=== PATIENT | male | born 1960 | race Caucasian/White ===

== ENCOUNTER 2017-04-30 13:23 | Observation (INO) | payer OTHER, SELFPAY ==
[2017-04-30] MEDS ORDERED: HYDROcodone/Acetaminophen 5/325 mg Tablet ONE (13:55)
[2017-04-30] MEDS ORDERED: Adacel (T-DAP) 0.5 ML VIAL ONE (14:26)
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
[2017-04-30] MEDS ORDERED: ePHEDrine/0.9% NaCl/PF SYRINGE 50 mg/10 ml ONE (16:53)
[2017-04-30] MEDS ORDERED: Lidocaine 1% PF 5 ML VIAL ONE (16:53)
[2017-04-30] MEDS ORDERED: Succinylcholine Chloride 20 MG/ML 10 ml SYRINGE FS ONE (16:53)
[2017-04-30] MEDS ORDERED: PHENYLEPHRINE-NS 100 MCG/ML 10 ML SYRINGE ONE (16:53)
[2017-04-30] MEDS ORDERED: Ondansetron HCl/PF 4 MG/2 ML Vial ONE (16:53)
[2017-04-30] MEDS ORDERED: Dexamethasone 20 MG/5 ML VIAL ONE (16:53)
[2017-04-30] MEDS ORDERED: PROPOFOL 200 MG/20 ML VIAL ONE (16:53)
[2017-04-30] MEDS ORDERED: Lidocaine 1% w/Epinephrine 1:200K 30 ML VIAL ONE (17:10)
[2017-04-30] MEDS ORDERED: Hydrocortisone 1% Cream 30 GM TUBE ONE (17:10)
[2017-04-30] MEDS ORDERED: Chlorhexidine Gluconate 15 ML UDCUP SSP ONE ×2 (17:10→17:28)
[2017-04-30] MEDS ORDERED: Midazolam HCl 2 mg/2 ml Vial ONE (17:44)
[2017-04-30] MEDS ORDERED: Fentanyl 100 MCG/2 ML VIAL ONE ×2 (17:44→21:06)
[2017-04-30] MEDS ORDERED: Clindamycin/D5W 900 mg/50 ml Premix Bag ONE (18:49)
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
[2017-04-30] MEDS ORDERED: Metoprolol Tartrate 5 MG/5 ML VIAL ONE (20:48)
[2017-04-30] MEDS ORDERED: Promethazine HCl 25 MG/ML VIAL SLOW IVP PRN (20:50)
[2017-04-30] MEDS ORDERED: Ondansetron HCl/PF 4 MG/2 ML Vial IVP PRN ×3 (20:50→21:44)
[2017-04-30] MEDS ORDERED: Promethazine HCl 25 MG/ML VIAL IM PRN ×2 (20:50→21:44)
[2017-04-30] MEDS ORDERED: D5 1/2 NS w/20 mEq KCL 1,000 ML ONE (21:37)
[2017-04-30] MEDS ORDERED: Dextrose 50% Abboject 50 ML SYRINGE SLOW IVP PRN (21:44)
[2017-04-30] MEDS ORDERED: hydrALAZINE 20 MG/ML VIAL SLOW IVP PRN (21:44)
[2017-04-30] MEDS ORDERED: Dextrose 5% in Water 1,000 ML IV PRN (21:44)
[2017-04-30] MEDS ORDERED: D5 0.9% NS w/ 20 mEq KCl 1,000 ML IV SCH (21:45)
[2017-04-30] MEDS ORDERED: Hydrocodone-Acetamin 15 ML UDCUP PO PRN (21:46)
[2017-04-30] MEDS: Sodium Chloride 0.9% 1,000 ML IV SCH (22:55)
--- NOTE | 2017-04-30 23:16 | CT ---
CT FACIAL BONES: 04/30/17 at 10:58 p.m. COMPARISON: 04/30/17 at 3:56 p.m. HISTORY: Open reduction and internal fixation of mandible fracture. TECHNIQUE: Serial axial CT imaging at 2.5 mm intervals through the facial bones without contrast. coronal and sa gittal reformatted imaging obtained. FINDINGS: There is mild cerebral volume loss involving the imaged brain parenchyma. Partially visualized calvar ial postsurgical changes are present on the right. The frontal sinuses, maxillary sinuses, ethmoid air cells, sphenoid sinuses and visualized mastoid ai r cells appear well aerated. A nondisplaced obliquely oriented fracture is seen involving the anterior aspect of the mandible on t he left just lateral to the region of the symphysis. Neither temporomandibular joint is dislocated. T here is an obliquely oriented fracture involving the angle of the mandible on the right, the inferior fracture fragment displaced laterally by approximately 3 mm, improved when compared to the prior ex amination at which time this degree of displacement measured approximately 6 mm. No new fracture is i dentified. New metallic structures are seen associated with the patient's teeth. There is extensive d egenerative change involving the imaged cervical spine. Postoperative and posttraumatic gas is seen a djacent to the mandible on the right. There is diffuse soft tissue swelling adjacent to the mandible, right greater than left, including soft tissue swelling in the right parotid and masseter region. IMPRESSION: Multifocal mandibular fracture. POS: [facility]
[2017-04-30] MEDS: Dexamethasone 10 MG/ML VIAL SLOW IVP SCH (23:23)
[2017-04-30] MEDS: Ibuprofen 100 MG/5 ML UDCUP PO SCH (23:24)
[2017-04-30 23:42] VITALS: BMI 19.7
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
[2017-05-01] MEDS: Clindamycin/D5W 900 MG in Premix Bag 1 BAG IVPB SCH ×2 (02:31→08:32)
[2017-05-01] MEDS: Ibuprofen 100 MG/5 ML UDCUP PO SCH ×2 (05:47→11:46)
[2017-05-01] MEDS: Dexamethasone 10 MG/ML VIAL SLOW IVP SCH ×2 (05:47→11:46)
[2017-05-01 05:48] LABS: Anion Gap 11 mmol/L (10-20); BUN (Urea Nitrogen) 10 mg/dL (8.4-25.7); Calc. Creatinine Clearance 101 mL/min (70-130); Calcium 8.9 mg/dL (7.8-10.44); Carbon Dioxide 24 mmol/L (22-29); Chloride 102 mmol/L (98-107); Estimated GFR-MDRD Greater than 90; Glucose 181 mg/dL (70-105); Potassium 3.9 mmol/L (3.5-5.1); Sodium 133 mmol/L (136-145)
[2017-05-01] MEDS: Sodium Chloride 0.9% 1,000 ML IV SCH (05:51)
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
[2017-05-01 06:50] LABS: #Lymphocytes 0.6 thou/uL (1.20-3.40); #Monocytes 0.5 thou/uL (0.11-0.59); #Neutrophils 11.2 thou/uL (1.40-6.50); %Eosinophils 0.3 % (0.0-10.0); %Lymphocytes 4.8 % (21.0-51.0); %Monocytes 4.1 % (0.0-10.0); %Neutrophils 90.9 % (42.0-75.0); Mean Corpuscular HGB CONC 33.5 g/dL (32.0-36.0); Mean Corpuscular Hemoglobin 35.8 pg (27.0-31.0); Mean Platelet Volume 7.1 fL (7.4-10.4); Platelet Count 174 thou/uL (130-400); RBC Distribution Width 10.5 % (11.5-14.5); RBC Morphology Normal; Red Blood Cell (RBC) Count 3.92 mill/uL (4.70-6.10); White Blood Cell (WBC) Count 12.3 thou/uL (4.8-10.8)
[2017-05-01] MEDS ORDERED: traMADol HCl 50 MG TAB PO PRN (07:57)
[2017-05-01] MEDS ORDERED: Acetaminophen 500 MG TAB PO PRN (07:58)
[2017-05-01] MEDS ORDERED: Acetaminophen/Codeine Oral Solution PO SCH (08:45)
[2017-05-01] MEDS ORDERED: Chlorhexidine Gluconate 15 ML UDCUP SSP SCH (09:00)
[2017-05-01] MEDS ORDERED: Ketorolac Tromethamine 60 MG/2 ML VIAL IM SCH (09:30)
[2017-05-01] MEDS ORDERED: Hydrocodone-Acetamin 15 ML UDCUP PO SCH (10:00)
[2017-05-01] MEDS ORDERED: Acetaminophen/Codeine Oral Solution PO PRN (10:23)
[2017-05-01 12:00] VITALS: BP 127/74; TEMP 97.9
--- NOTE | 2017-05-01 15:38 | EKG ---
Test Reason : STAT Blood Pressure : / mmHG Vent. Rate : 124 BPM Atrial Rate : 124 BPM P-R Int : 134 ms QRS Dur : 092 ms QT Int : 322 ms P-R-T Axes : 077 072 057 degrees QTc Int : 462 ms Sinus tachycardia Nonspecific ST abnormality Abnormal ECG Confirmed by EMMIE CARTY ([id number]) on 05/01/2017 3:38:13 PM Referred By: Confirmed By:EMMIE CARTY
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
== END 2017-05-01 12:33 ==
LOC: SCSER 13:23 → SDC 15:17 → EEVIPCON 15:17 → SURG A 15:58
PROVIDERS: ADMIT Surgery; ATTEND Surgery
PROC: 0NST04Z Reposition Right Mandible with Internal Fixation Device, Open Approach (ICD-10-PCS; principal; 2017-04-30)
PROC: 0NSV34Z Reposition Left Mandible with Internal Fixation Device, Percutaneous Approach (ICD-10-PCS; 2017-04-30)
DX: S02.66XA Fracture of symphysis of mandible, initial encounter for closed fracture (principal); S02.651B Fracture of angle of right mandible, initial encounter for open fracture; I10 Essential (primary) hypertension; G89.11 Acute pain due to trauma; Y09 Assault by unspecified means; Y92.141 Dining room in prison as the place of occurrence of the external cause; Z98.890 Other specified postprocedural states; Z86.19 Personal history of other infectious and parasitic diseases
CPT/HCPCS: 36415; 70110; 70450; 70486; 71046; 72125; 80048; 85025; 90471; 90715; 93005; 93010; 96361; 96365; 96375; 96376; 99406; C1713; G0378; J1100; J1885; J2001; J2250; J2405; J2704; J3010; J3490

== ENCOUNTER 2017-05-17 22:43 | Emergency (ER) | payer SELFPAY | END 2017-05-17 23:25 | disposition home or self-care (01) | LOC: ERS 22:43 | DX: T85.698A Other mechanical complication of other specified internal prosthetic devices, implants and grafts, initial encounter (principal); I10 Essential (primary) hypertension; F17.210 Nicotine dependence, cigarettes, uncomplicated | CPT/HCPCS: 99283 ==

== ENCOUNTER 2017-10-13 12:05 | Observation (INO) | payer OTHER, SELFPAY ==
[2017-10-13] MEDS ORDERED: Multivit, Adult Inj 10 ML VIAL ONE (12:55)
[2017-10-13] MEDS ORDERED: Thiamine HCl 200 MG/2 ML VIAL ONE (12:55)
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
[2017-10-13 14:12] LABS: Band 6 % (5-11); Eosinophils 3 % (0-10); Hemoglobin 14.7 g/dL (14.0-18.0); Large Platelets SLIGHT; Lymphocytes 15 % (21-51); MDiff Complete? YES; Macrocytosis SLIGHT = 6-15 cells (100X) (0-5/hpf); Mean Corpuscular HGB CONC 36.3 g/dL (32.0-36.0); Mean Corpuscular Hemoglobin 36.8 pg (27.0-31.0); Mean Platelet Volume 6.8 fL (7.4-10.4); Monocytes 16 % (0-10); Neutrophil 60 % (42-75); PLT Morphology Comment Appears Decreased; Platelet Count 124 thou/uL (130-400); RBC Distribution Width 10.3 % (11.5-14.5); Red Blood Cell (RBC) Count 3.99 mill/uL (4.70-6.10); White Blood Cell (WBC) Count 5.8 thou/uL (4.8-10.8)
[2017-10-13 14:17] LABS: ALT (SGPT) 54 U/L (8-55); AST (SGOT) 38 U/L (5-34); Albumin 4.5 g/dL (3.5-5.0); Alcohol Less than 10 mg/dL (Less than 10); Alkaline Phosphatase 73 U/L (40-150); Anion Gap 15 mmol/L (10-20); BUN (Urea Nitrogen) 14 mg/dL (8.4-25.7); Bilirubin, Total 1.5 mg/dL (0.2-1.2); CK (CPK) 247 U/L (30-200); Calc. Creatinine Clearance 0 mL/min (70-130); Calcium 10.5 mg/dL (7.8-10.44); Carbon Dioxide 25 mmol/L (22-29); Chloride 103 mmol/L (98-107); Estimated GFR-MDRD Greater than 90; Globulin 3.1 g/dL (2.4-3.5); Glucose 86 mg/dL (70-105); Magnesium 2.1 mg/dL (1.6-2.6); Potassium 3.8 mmol/L (3.5-5.1); Protein, Total 7.6 g/dL (6.0-8.3); Sodium 139 mmol/L (136-145)
[2017-10-13] MEDS ORDERED: Adacel (T-DAP) 0.5 ML VIAL ONE (15:11)
[2017-10-13 15:13] LABS: Bilirubin Small (Negative); Blood, Urine Negative (Negative); Clarity Clear (Clear); Glucose, Urine (Dipstick) Negative (Negative); Leukocyte Negative (Negative); Nitrite Negative (Negative); Protein, Urine (Dipstick) 30 mg/dL (Neg-Trace); Specific Gravity, Urine 1.025 (1.005-1.030); pH, Urine 6.5 (5.0-9.0)
[2017-10-13 15:16] LABS: Hyaline Casts/LPF 0-3 HYALINE CAST LPF (0-3 Hyaline); RBC/HPF 0-3 HPF (0-3); Squamous Epithelial 0-3 HPF (0-3); WBC/HPF 0-3 HPF (0-3)
[2017-10-13 15:23] LABS: Amphetamine Not Detected (NotDetected); Barbiturates Screen Not Detected (NotDetected); Benzodiazepine Screen Detected (NotDetected); Cocaine Metabolite Screen Not Detected (NotDetected); Medtox Control Line Valid? VALID (VALID); Methadone Not Detected (NotDetected); Methamphetamine Not Detected (NotDetected); Opiate Screen Not Detected (NotDetected); Oxycodone Screen Not Detected (NotDetected); Phencyclidine (PCP) Not Detected (NotDetected); THC/Cannabinoid Screen Not Detected (NotDetected); Tricyclic Screen Not Detected (NotDetected)
--- NOTE | 2017-10-13 17:13 | RAD ---
FRONTAL VIEW CHEST: COMPARISON: Chest radiographs dating back to April 2011. FINDINGS: The lungs are hyperinflated. There is a nodular density again demonstrated at the lateral right mid lung zone, without significant interval change from the 09/02/2013 exam. The cardiac silhouette is a ccentuated. IMPRESSION: 1. Hyperinflated lungs, which may reflect chronic obstructive pulmonary disease. 2. Stable high density nodule of the lateral right mid lung, when comparing to the April 2011 exa mination. This indicates a stable granuloma. POS: [facility]
[2017-10-13] MEDS ORDERED: Multivitamins, Adult 10 ML, Folic Acid 1 MG, Thiamine HCl 100 MG in Dextrose 5 %-0.45 %... IV SCH (20:00)
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
[2017-10-13] MEDS ORDERED: Acetaminophen 325 MG TAB PO PRN (20:20)
[2017-10-13] MEDS ORDERED: Acetaminophen 650 MG Suppository PR PRN (20:20)
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
--- NOTE | 2017-10-14 06:12 | PDOC.FM ---
Addendum entered and electronically signed by Michael Boswell DO 10/14/17 13:50 : PPD at intermediate on 10/09/17 was negative for TB per Guard Original Note: - Subjective Subjective: Pt. states he did well overnight. He denies chest pain, dyspnea, headaches, dizziness, or nausea/vomiting - Objective MAR Reviewed: Yes Vital Signs & Weight: Vital Signs (12 hours) Temp Pulse Resp BP BP Pulse Ox 10/14/17 03:25 143/94 H 10/14/17 03:24 98.1 F 92 16 143/94 H 97 10/14/17 00:19 98.2 F 78 17 144/87 H 97 10/14/17 00:00 144/87 H 10/13/17 20:00 98.2 F 83 22 H 158/88 H 158/88 H 98 Weight Weight 61.462 kg I&O: 10/12/17 10/13/17 10/14/17 06:59 06:59 06:59 Intake Total 1400 Balance 1400 Result Diagrams: 10/14/17 08:05 10/14/17 08:05 <Michael Boswell - Last Filed: 10/14/17 08:39> - Objective Vital Signs & Weight: Vital Signs (12 hours) Temp Pulse Resp BP Pulse Ox 10/14/17 11:00 98.7 F 91 20 122/82 94 L Weight Admit Weight 60.101 kg Weight 61.462 kg I&O: 10/13/17 10/14/17 10/15/17 06:59 06:59 06:59 Intake Total 1400 Output Total 400 Balance 1400 -400 Result Diagrams: 10/14/17 08:05 10/14/17 08:05 <Yoselin Graham - Last Filed: 10/14/17 21:47> Phys Exam - Physical Examination Constitutional: NAD HEENT: PERRLA, moist MMs Neck: no JVD, full ROM Respiratory: no wheezing, clear to auscultation bilateral Cardiovascular: RRR, no significant murmur Gastrointestinal: soft, non-tender, no distention, positive bowel sounds Musculoskeletal: no edema, pulses present Neurological: normal sensation, moves all 4 limbs Psychiatric: normal affect, A&O x 3 Skin: normal turgor, cap refill <2 seconds <Michael Boswell - Last Filed: 10/14/17 08:39> Dx/Plan (1) Alcohol abuse Code(s): F10.10 - ALCOHOL ABUSE, UNCOMPLICATED Status: Acute (2) Altered mental status Code(s): R41.82 - ALTERED MENTAL STATUS, UNSPECIFIED Status: Acute (3) Hyperbilirubinemia Code(s): E80.6 - OTHER DISORDERS OF BILIRUBIN METABOLISM Status: Acute - Plan Plan: This is a 57 yo male with a PMH of Hx seizures with subdural hemotoma in 1993, Hep C AMS -Likely 2/2 alcohol withdraw vs. wernicke encephalopathy. Alcohol level was below 10 on admission. Pt. had GLF, CT head/spine showed no acute changes. We will continue to monitor for changes in metal status Alcohol abuse -ASE protocol in effect, receiving banana bag, Pt. is on librium taper. Will monitor for changes in mental status Hyper bilirubinemia -Likely 2/2 alcohol abuse, steatosis, and hep C Hepatitis C of unknown significance -Will assume chronic for now Undiagnosed COPD -CXR points to COPD as well as a 44 pack year history of smoking Code: FULL Family: Prophylaxis: Banana bag, librium Disposition: Penitentiary in 1-2 days <Michael Boswell - Last Filed: 10/14/17 08:39> Attending Addendum - Attending Addendum Date/Time: 10/14/17 201 I personally evaluated the patient and discussed the management with Dr. Boswell I agree with the History, Examination, Assessment and Plan documented above with any addition or exceptions noted below. Back at baseline this morning. No acute events overnight. Symptoms possibly related to lack of benzos for different reasons in nursing home. Stable for d/c today. ABrayMD <Yoselin Graham - Last Filed: 10/14/17 21:47>
[2017-10-14 08:31] LABS: Hemoglobin 14.4 g/dL (14.0-18.0); Mean Corpuscular HGB CONC 33.9 g/dL (32.0-36.0); Mean Corpuscular Hemoglobin 37.5 pg (27.0-31.0); Mean Platelet Volume 7.3 fL (7.4-10.4); Platelet Count 112 thou/uL (130-400); RBC Distribution Width 10.9 % (11.5-14.5); Red Blood Cell (RBC) Count 3.85 mill/uL (4.70-6.10); White Blood Cell (WBC) Count 5.2 thou/uL (4.8-10.8)
[2017-10-14 08:37] LABS: ALT (SGPT) 42 U/L (8-55); AST (SGOT) 30 U/L (5-34); Albumin 4.1 g/dL (3.5-5.0); Alkaline Phosphatase 65 U/L (40-150); Anion Gap 13 mmol/L (10-20); BUN (Urea Nitrogen) 9 mg/dL (8.4-25.7); Bilirubin, Total 1.8 mg/dL (0.2-1.2); Calc. Creatinine Clearance 116 mL/min (70-130); Calcium 9.5 mg/dL (7.8-10.44); Carbon Dioxide 21 mmol/L (22-29); Chloride 103 mmol/L (98-107); Estimated GFR-MDRD Greater than 90; Globulin 2.8 g/dL (2.4-3.5); Glucose 83 mg/dL (70-105); Potassium 3.4 mmol/L (3.5-5.1); Protein, Total 6.9 g/dL (6.0-8.3); Sodium 134 mmol/L (136-145)
[2017-10-14] MEDS ORDERED: Enoxaparin Sodium 40 MG/0.4 ML SYRINGE SC SCH (09:00)
[2017-10-14] MEDS ORDERED: Multivitamins, Adult 10 ML, Folic Acid 1 MG, Thiamine HCl 100 MG in Dextrose 5 %-0.45 %... IV SCH (09:00)
[2017-10-14 09:01] LABS: Band 15 % (5-11); Eosinophils 5 % (0-10); Lymphocytes 23 % (21-51); MDiff Complete? YES; Macrocytosis SLIGHT = 6-15 cells (100X) (0-5/hpf); Monocytes 8 % (0-10); Neutrophil 49 % (42-75); PLT Morphology Comment Appears Decreased
[2017-10-14 12:42] VITALS: BP 122/82; TEMP 98.7
[2017-10-14 12:56] VITALS: BMI 19.4
--- NOTE | 2017-10-26 13:14 | EKG ---
Test Reason : AMS Blood Pressure : / mmHG Vent. Rate : 092 BPM Atrial Rate : 092 BPM P-R Int : 122 ms QRS Dur : 088 ms QT Int : 396 ms P-R-T Axes : 035 038 038 degrees QTc Int : 489 ms Normal sinus rhythm Junctional ST depression, probably normal Prolonged QT Abnormal ECG Confirmed by CARRILLO GAN, DA ([id number]), brands editor NAVJOT DIAZ ([id number]) on 10/26/2017 1:13:54 PM Referred By: AASHISH Confirmed By:DA VIZCAINO MD
== END 2017-10-14 15:02 ==
LOC: SCSER 12:05 → 2SW 15:25
PROVIDERS: ADMIT Family Medicine; ATTEND Family Medicine
DX: R41.82 Altered mental status, unspecified (principal); F10.10 Alcohol abuse, uncomplicated; E80.6 Other disorders of bilirubin metabolism; F17.200 Nicotine dependence, unspecified, uncomplicated
CPT/HCPCS: 12002; 12011; 36415; 70450; 71045; 72125; 80053; 80306; 80307; 81001; 82140; 82550; 83735; 85007; 85025; 85027; 90471; 90715; 93005; 96365; 96366; 96372; G0378; J1650; J3411; J7042

== ENCOUNTER 2018-02-18 12:02 | Emergency (ER) | payer SELFPAY ==
[2018-02-18 14:30] LABS: #Basophils 0.1 thou/uL (0.0-0.2); #Eosinphils 0.1 thou/uL (0.0-0.7); #Lymphocytes 1.4 thou/uL (1.20-3.40); #Neutrophils 5.4 thou/uL (1.40-6.50); %Basophils 0.8 % (0.0-1.0); %Eosinophils 0.8 % (0.0-10.0); %Lymphocytes 18.1 % (21.0-51.0); %Monocytes 12.9 % (0.0-10.0); %Neutrophils 67.5 % (42.0-75.0); Hemoglobin 17.2 g/dL (14.0-18.0); Mean Corpuscular HGB CONC 35.1 g/dL (32.0-36.0); Mean Corpuscular Hemoglobin 38.6 pg (27.0-31.0); Mean Platelet Volume 6.8 fL (7.4-10.4); Platelet Count 203 thou/uL (130-400); RBC Distribution Width 11.1 % (11.5-14.5); Red Blood Cell (RBC) Count 4.45 mill/uL (4.70-6.10)
[2018-02-18 14:44] LABS: ALT (SGPT) 25 U/L (8-55); AST (SGOT) 31 U/L (5-34); Albumin 4.3 g/dL (3.5-5.0); Alkaline Phosphatase 95 U/L (40-150); Anion Gap 13 mmol/L (10-20); BUN (Urea Nitrogen) 6 mg/dL (8.4-25.7); Calc. Creatinine Clearance 0 mL/min (70-130); Calcium 9.7 mg/dL (7.8-10.44); Carbon Dioxide 28 mmol/L (22-29); Chloride 96 mmol/L (98-107); Estimated GFR-MDRD Greater than 90; Globulin 3.5 g/dL (2.4-3.5); Glucose 100 mg/dL (70-105); Potassium 3.6 mmol/L (3.5-5.1); Protein, Total 7.8 g/dL (6.0-8.3); Sodium 133 mmol/L (136-145)
[2018-02-18] MEDS ORDERED: Ketorolac Tromethamine 30 MG/ML VIAL ONE (15:25)
--- NOTE | 2018-02-18 15:48 | RAD ---
2 VIEWS RIGHT HUMERUS: Date: 02/18/18 COMPARISON: None. HISTORY: Arm pain for 3 days. FINDINGS: Three views of the right humerus show a comminuted fracture of the humeral neck. No dislocation of th e humeral head is seen. Surrounding soft tissue swelling is present. IMPRESSION: Comminuted humeral neck fracture. POS: [facility]
== END 2018-02-18 16:56 | disposition home or self-care (01) ==
LOC: ERS 12:02
DX: S42.211A Unspecified displaced fracture of surgical neck of right humerus, initial encounter for closed fracture (principal); S01.01XD Laceration without foreign body of scalp, subsequent encounter; R00.0 Tachycardia, unspecified; F17.210 Nicotine dependence, cigarettes, uncomplicated; I10 Essential (primary) hypertension
CPT/HCPCS: 80053; 85025; 93005; 96360; J1885

== ENCOUNTER 2020-07-13 22:47 | Emergency (ER) | payer SELFPAY ==
[2020-07-13] MEDS ORDERED: Tranexamic Acid 1,000 MG/10 ML VIAL ONE (23:20)
[2020-07-13] MEDS ORDERED: Boostrix 0.5 ML (Tdap) VIAL ONE (23:20)
[2020-07-13] MEDS ORDERED: levETIRAcetam in NS 100 ML ONE ×2 (23:30→23:47)
[2020-07-13 23:35] LABS: #Lymphocytes 1.1 thou/uL (1.20-3.40); #Neutrophils 5.4 thou/uL (1.40-6.50); %Basophils 0.4 % (0.0-1.0); %Eosinophils 0.3 % (0.0-10.0); %Lymphocytes 14.9 % (21.0-51.0); %Monocytes 13.4 % (0.0-10.0); Hemoglobin 16.4 g/dL (14.0-18.0); Mean Corpuscular HGB CONC 34.1 g/dL (32.0-36.0); Mean Corpuscular Hemoglobin 37.7 pg (27.0-31.0); Mean Platelet Volume 7.5 fL (7.4-10.4); Platelet Count 130 thou/uL (130-400); RBC Distribution Width 11.7 % (11.5-14.5); Red Blood Cell (RBC) Count 4.35 mill/uL (4.70-6.10); White Blood Cell (WBC) Count 7.7 thou/uL (4.8-10.8)
[2020-07-13 23:50] LABS: ALT (SGPT) 74 U/L (8-55); AST (SGOT) 102 U/L (5-34); Albumin 4.2 g/dL (3.5-5.0); Alkaline Phosphatase 100 U/L (40-110); Anion Gap 23 mmol/L (10-20); BUN (Urea Nitrogen) 6 mg/dL (8.4-25.7); Bilirubin, Total 1.2 mg/dL (0.2-1.2); Calc. Creatinine Clearance 0 mL/min (70-130); Calcium 10.5 mg/dL (7.8-10.44); Carbon Dioxide 17 mmol/L (22-29); Chloride 99 mmol/L (98-107); Globulin 3.7 g/dL (2.4-3.5); Glucose 158 mg/dL (70-105); Potassium 3.8 mmol/L (3.5-5.1); Protein, Total 7.9 g/dL (6.0-8.3); Sodium 135 mmol/L (136-145)
== END 2020-07-14 01:05 | disposition home or self-care (01) ==
LOC: ERS 22:47
DX: G40.409 Other generalized epilepsy and epileptic syndromes, not intractable, without status epilepticus (principal); S00.31XA Abrasion of nose, initial encounter; I10 Essential (primary) hypertension; F17.210 Nicotine dependence, cigarettes, uncomplicated; Z23 Encounter for immunization; W19.XXXA Unspecified fall, initial encounter
CPT/HCPCS: 36415; 80053; 85025; 90471; 90715; 96365; J1953

== ENCOUNTER 2021-04-10 23:38 | Emergency (ER) | payer SELFPAY ==
[2021-04-10] MEDS ORDERED: Folic Acid 1 MG, Multivitamins, Adult 10 ML in Dextrose 5 %-0.45 % NaCl 1,000 ML IV SCH (23:45)
[2021-04-10] MEDS ORDERED: Thiamine HCl 200 MG/2 ML VIAL SLOW IVP SCH (23:45)
[2021-04-11] MEDS ORDERED: Lorazepam 2 MG/ML VIAL ONE (00:13)
[2021-04-11 00:33] LABS: Hemoglobin 16.5 g/dL (14.0-18.0); Mean Corpuscular HGB CONC 33.8 g/dL (32.0-36.0); Mean Corpuscular Hemoglobin 36.7 pg (27.0-31.0); Mean Platelet Volume 6.6 fL (7.4-10.4); Platelet Count 222 thou/uL (130-400); RBC Distribution Width 10.8 % (11.5-14.5); Red Blood Cell (RBC) Count 4.51 mill/uL (4.70-6.10); White Blood Cell (WBC) Count 7.6 thou/uL (4.8-10.8)
[2021-04-11 00:51] LABS: Acetaminophen Less than 6.0 mcg/mL (10.0-30.0); Alcohol Less than 10 mg/dL (Less than 10); Magnesium 2.2 mg/dL (1.6-2.6); Salicylate Less than 8.0 mg/dL (15.0-30.0)
[2021-04-11 00:52] LABS: ALT (SGPT) 23 U/L (8-55); AST (SGOT) 32 U/L (5-34); Albumin 4.1 g/dL (3.5-5.0); Alkaline Phosphatase 87 U/L (40-110); Anion Gap 19 mmol/L (10-20); BUN (Urea Nitrogen) 7 mg/dL (8.4-25.7); Band 4 % (5-11); Bilirubin, Total 0.5 mg/dL (0.2-1.2); Calc. Creatinine Clearance 0 mL/min (70-130); Calcium 9.4 mg/dL (7.8-10.44); Carbon Dioxide 20 mmol/L (22-29); Chloride 97 mmol/L (98-107); Eosinophils 1 % (0-10); Globulin 3.2 g/dL (2.4-3.5); Glucose 98 mg/dL (70-105); Lymphocytes 26 % (21-51); MDiff Complete? YES; Monocytes 17 % (0-10); Neutrophil 51 % (42-75); Potassium 4.1 mmol/L (3.5-5.1); Protein, Total 7.3 g/dL (6.0-8.3); Reactive Lymphocytes 1 % (0-10); Sodium 132 mmol/L (136-145)
[2021-04-11 02:46] LABS: Amphetamine Not Detected (NotDetected); Barbiturates Screen Not Detected (NotDetected); Benzodiazepine Screen Not Detected (NotDetected); Cocaine Metabolite Screen Detected (NotDetected); Methadone Not Detected (NotDetected); Methamphetamine Not Detected (NotDetected); Opiate Screen Not Detected (NotDetected); Oxycodone Screen Not Detected (NotDetected); Phencyclidine (PCP) Not Detected (NotDetected); THC/Cannabinoid Screen Not Detected (NotDetected); Tricyclic Screen Not Detected (NotDetected)
== END 2021-04-11 04:58 | disposition home or self-care (01) ==
LOC: ERS 23:38
DX: R56.9 Unspecified convulsions (principal); F14.10 Cocaine abuse, uncomplicated; I10 Essential (primary) hypertension; F17.210 Nicotine dependence, cigarettes, uncomplicated
CPT/HCPCS: 36415; 70450; 80053; 80306; 80307; 83735; 85025; 96365; 96366; 96375; J2060; J3411; J7042

== ENCOUNTER 2021-09-17 21:25 | Inpatient (IN) | payer SELFPAY ==
[~2021-09-17 21:25] MED LIST: Lorazepam 1 MG TAB PO PRN
[2021-09-17] MEDS ORDERED: Midazolam HCl 2 mg/2 ml Vial ONE (21:35)
[2021-09-17 21:52] LABS: Hemoglobin 18.1 g/dL (14.0-18.0); Mean Corpuscular HGB CONC 35.8 g/dL (32.0-36.0); Mean Corpuscular Hemoglobin 38.8 pg (27.0-31.0); Mean Platelet Volume 9.2 fL (7.4-10.4); Platelet Count 66 thou/uL (130-400); RBC Distribution Width 11.8 % (11.5-14.5); Red Blood Cell (RBC) Count 4.66 mill/uL (4.70-6.10); White Blood Cell (WBC) Count 5.2 thou/uL (4.8-10.8)
[2021-09-17 22:17] LABS: ALT (SGPT) 70 U/L (8-55); AST (SGOT) 143 U/L (5-34); Albumin 4.1 g/dL (3.5-5.0); Alcohol 12 mg/dL (Less than 10); Alkaline Phosphatase 70 U/L (40-110); Anion Gap 28 mmol/L (10-20); BUN (Urea Nitrogen) 25 mg/dL (8.4-25.7); Bilirubin, Total 0.9 mg/dL (0.2-1.2); Calc. Creatinine Clearance 0 mL/min (70-130); Calcium 9.5 mg/dL (7.8-10.44); Carbon Dioxide 21 mmol/L (22-29); Chloride 87 mmol/L (98-107); Estimated GFR 65; Globulin 3.7 g/dL (2.4-3.5); Glucose 112 mg/dL (70-105); Protein, Total 7.8 g/dL (6.0-8.3); Sodium 133 mmol/L (136-145)
[2021-09-17 22:20] LABS: Potassium 2.9 mmol/L (3.5-5.1)
[2021-09-17 22:23] LABS: Band 9 % (5-11); Differential Comment Immature Cell(s); Lymphocytes 10 % (21-51); MDiff Complete? YES; Macrocytosis MODERATE=16-30 cells (100X) (0-5/hpf); Monocytes 17 % (0-10); Neutrophil 62 % (42-75); Ovalocytes SLIGHT = 2-5 cells (100X) (0-1/hpf); Platelet Morphology Comment Appears Decreased; Reflex for Review?? YES
[2021-09-17 22:25] LABS: CKMB 0.4 ng/mL (0-6.6)
[2021-09-17] MEDS ORDERED: Multivitamins, Adult 10 ML, Thiamine HCl 100 MG, Folic Acid 1 MG in Dextrose 5 %-0.45 %... IV SCH (23:30)
[2021-09-17] MEDS ORDERED: Thiamine HCl 200 MG/2 ML VIAL SLOW IVP SCH (23:45)
[2021-09-17] MEDS ORDERED: Electrolyte Replacement Protocol 1 EACH FS PRN (23:45)
[2021-09-17] MEDS ORDERED: Ondansetron ODT 4 MG TAB PO PRN ×2 (23:45→23:48)
[2021-09-17] MEDS ORDERED: Electrolyte Replacement Protocol 1 EACH FS SCH (23:45)
[2021-09-17] MEDS ORDERED: Lorazepam 2 MG/ML VIAL IM PRN ×2 (23:45→23:48)
[2021-09-17] MEDS ORDERED: Ondansetron PF 4 MG/2 ML Vial IVP PRN (23:48)
[2021-09-17] MEDS ORDERED: Acetaminophen 650 MG Suppository PR PRN (23:48)
[2021-09-17] MEDS ORDERED: Lorazepam 1 MG TAB PO PRN (23:48)
[2021-09-17] MEDS ORDERED: Lorazepam 1 MG TAB PO SCH (23:59)
[2021-09-18] MEDS ORDERED: levETIRAcetam 500 MG TAB PO SCH ×3 (01:00→09:00)
[2021-09-18 01:53] VITALS: BMI 16.2
[2021-09-18 01:57] LABS: Bacteria/HPF None Seen HPF (None Seen); Bilirubin Negative (Negative); Blood, Urine 1+ (Negative); Clarity Turbid (Clear); Glucose, Urine (Dipstick) 30 mg/dL (Negative); Ketone, Urine 40 mg/dL (Negative); Leukocyte Negative Leu/uL (Negative); Nitrite Negative (Negative); Protein, Urine (Dipstick) 200 mg/dL (Neg-Trace); RBC/HPF 0-3 HPF (0-3); Specific Gravity, Urine 1.026 (1.002-1.036); Squamous Epithelial None Seen HPF (0-3); Urobilinogen Normal mg/dL (Less than 2); WBC/HPF 0-3 HPF (0-3)
[2021-09-18] MEDS: Potassium Chloride 20 MEQ in Premix Bag 1 BAG IVPB SCH ×3 (02:09→06:46)
[2021-09-18 02:12] LABS: Amphetamine Not Detected (NotDetected); Barbiturates Screen Not Detected (NotDetected); Benzodiazepine Screen Not Detected (NotDetected); Cocaine Metabolite Screen Not Detected (NotDetected); Methadone Not Detected (NotDetected); Methamphetamine Not Detected (NotDetected); Opiate Screen Not Detected (NotDetected); Oxycodone Screen Not Detected (NotDetected); Phencyclidine (PCP) Not Detected (NotDetected); THC/Cannabinoid Screen Detected (NotDetected); Tricyclic Screen Not Detected (NotDetected)
[2021-09-18] MEDS ORDERED: Metoprolol Tartrate 5 MG/5 ML VIAL IVP SCH (02:30)
[2021-09-18 02:33] LABS: Troponin I 0.088 ng/mL (< 0.028)
[2021-09-18] MEDS: Potassium Chloride 20 MEQ TAB PO SCH ×2 (02:42→06:48)
[2021-09-18] MEDS: Nicotine 21 MG PATCH TD SCH (02:56)
[2021-09-18] MEDS: Sodium Chloride 0.9% 1,000 ML IV SCH ×2 (03:27→12:35)
[2021-09-18] MEDS: Lorazepam 1 MG TAB PO SCH ×5 (03:28→17:35)
[2021-09-18 05:30] LABS: ALT (SGPT) 62 U/L (8-55); AST (SGOT) 111 U/L (5-34); Albumin 3.6 g/dL (3.5-5.0); Alkaline Phosphatase 61 U/L (40-110); Anion Gap 16 mmol/L (10-20); BUN (Urea Nitrogen) 17 mg/dL (8.4-25.7); Bilirubin, Total 0.9 mg/dL (0.2-1.2); Calc. Creatinine Clearance 76 mL/min (70-130); Calcium 8.7 mg/dL (7.8-10.44); Carbon Dioxide 29 mmol/L (22-29); Chloride 89 mmol/L (98-107); Estimated GFR 103; Globulin 3.4 g/dL (2.4-3.5); Glucose 147 mg/dL (70-105); Magnesium 2.8 mg/dL (1.6-2.6); Phosphorus 2.9 mg/dL (2.3-4.7); Potassium 3.5 mmol/L (3.5-5.1); Sodium 130 mmol/L (136-145)
[2021-09-18 05:34] LABS: Troponin I 0.072 ng/mL (< 0.028)
[2021-09-18] MEDS ORDERED: Lorazepam 1 MG TAB PO SCH (06:00)
[2021-09-18 06:03] LABS: Band 9 % (5-11); Eosinophils 1 % (0-10); Hemoglobin 16.3 g/dL (14.0-18.0); Lymphocytes 19 % (21-51); MDiff Complete? YES; Macrocytosis MODERATE=16-30 cells (100X) (0-5/hpf); Mean Corpuscular Hemoglobin 37.2 pg (27.0-31.0); Mean Platelet Volume 9.3 fL (7.4-10.4); Metamyelocyte 1 % (0-0); Monocytes 15 % (0-10); Neutrophil 55 % (42-75); Ovalocytes SLIGHT = 2-5 cells (100X) (0-1/hpf); Platelet Count 59 thou/uL (130-400); Platelet Morphology Comment Appears Decreased; RBC Distribution Width 11.9 % (11.5-14.5); Red Blood Cell (RBC) Count 4.39 mill/uL (4.70-6.10)
[2021-09-18] MEDS ORDERED: Folic Acid 1 MG TAB PO SCH (09:00)
[2021-09-18] MEDS ORDERED: Multivit, Therapeutic 1 TAB PO SCH (09:00)
[2021-09-18] MEDS: chlordiazePOXIDE HCl 25 MG CAP PO SCH ×3 (09:27→21:43)
[2021-09-18] MEDS: levETIRAcetam 500 MG TAB PO SCH ×2 (09:28→21:48)
[2021-09-18] MEDS: Folic Acid 1 MG TAB PO SCH (09:28)
[2021-09-18] MEDS: Multivit, Therapeutic 1 TAB PO SCH (09:28)
[2021-09-18] MEDS: Famotidine 20 MG TAB PO SCH ×2 (09:29→21:43)
[2021-09-18 10:56] LABS: Syphilis Antibody Nonreactive (Nonreactive); Syphilis Antibody Index 0.07 S/CO (<1.00 Non-Reactive)
[2021-09-18] MEDS ORDERED: Lorazepam 1 MG TAB PO PRN ×2 (23:45→23:48)
[2021-09-19] MEDS: Nicotine 21 MG PATCH TD SCH (01:34)
[2021-09-19] MEDS: Lorazepam 1 MG TAB PO SCH ×2 (01:34→05:57)
[2021-09-19] MEDS ORDERED: Lorazepam 0.5 MG TAB PO SCH (06:00)
[2021-09-19 07:21] LABS: Hemoglobin 17.5 g/dL (14.0-18.0); Mean Corpuscular HGB CONC 32.7 g/dL (32.0-36.0); Mean Corpuscular Hemoglobin 37.2 pg (27.0-31.0); Mean Platelet Volume 9.3 fL (7.4-10.4); Platelet Count 89 thou/uL (130-400); RBC Distribution Width 12.3 % (11.5-14.5); White Blood Cell (WBC) Count 5.1 thou/uL (4.8-10.8)
[2021-09-19 07:42] LABS: Band 19 % (5-11); Lymphocytes 20 % (21-51); MDiff Complete? YES; Macrocytosis MODERATE=16-30 cells (100X) (0-5/hpf); Monocytes 20 % (0-10); Neutrophil 41 % (42-75); Platelet Morphology Comment Appears Decreased; Polychromasia SLIGHT = 2-3 cells (100X) (0-2/hpf)
[2021-09-19 08:48] LABS: Albumin 3.3 g/dL (3.5-5.0)
[2021-09-19 08:49] LABS: Chloride 98 mmol/L (98-107); Potassium 3.7 mmol/L (3.5-5.1)
[2021-09-19 08:50] LABS: Calcium 9.1 mg/dL (7.8-10.44); Sodium 133 mmol/L (136-145)
[2021-09-19 08:51] LABS: Globulin 3.5 g/dL (2.4-3.5); Glucose 75 mg/dL (70-105); Protein, Total 6.8 g/dL (6.0-8.3)
[2021-09-19 08:52] LABS: Anion Gap 20 mmol/L (10-20); Carbon Dioxide 19 mmol/L (22-29)
[2021-09-19 08:53] LABS: Bilirubin, Total 0.8 mg/dL (0.2-1.2)
[2021-09-19 08:54] LABS: Alkaline Phosphatase 53 U/L (40-110); CRP (Inflammatory) 8.47 mg/dL (= or < 0.5); Calc. Creatinine Clearance 102 mL/min (70-130); Estimated GFR 113
[2021-09-19 08:55] LABS: BUN (Urea Nitrogen) 8 mg/dL (8.4-25.7)
[2021-09-19 08:56] LABS: AST (SGOT) 68 U/L (5-34)
[2021-09-19 08:57] LABS: ALT (SGPT) 44 U/L (8-55)
[2021-09-19] MEDS: Metoprolol Tartrate 25 MG TAB PO SCH ×2 (09:39→21:00)
[2021-09-19] MEDS: levETIRAcetam 500 MG TAB PO SCH ×2 (09:39→21:00)
[2021-09-19] MEDS: Famotidine 20 MG TAB PO SCH ×2 (09:40→21:00)
[2021-09-19] MEDS: Folic Acid 1 MG TAB PO SCH (09:40)
[2021-09-19] MEDS: Multivit, Therapeutic 1 TAB PO SCH (09:40)
[2021-09-19] MEDS: chlordiazePOXIDE HCl 25 MG CAP PO SCH (09:40)
[2021-09-19 17:09] LABS: Creatinine, Urine 157.34 mg/dL (63-166); Potassium, Urine 66.4 mmol/L
[2021-09-19] MEDS: Atorvastatin Calcium 40 MG TAB PO SCH (21:00)
[2021-09-19] MEDS ORDERED: Lorazepam 1 MG TAB PO PRN ×2 (23:45→23:48)
[2021-09-20] MEDS: Nicotine 21 MG PATCH TD SCH (01:18)
[2021-09-20] MEDS ORDERED: Lorazepam 0.5 MG TAB PO PRN ×2 (06:00→23:48)
[2021-09-20] MEDS ORDERED: Lorazepam 0.5 MG TAB PO SCH (06:00)
[2021-09-20 07:25] LABS: Hemoglobin 17.9 g/dL (14.0-18.0); Mean Corpuscular Hemoglobin 36.5 pg (27.0-31.0); Mean Platelet Volume 8.7 fL (7.4-10.4); Platelet Count 106 thou/uL (130-400); RBC Distribution Width 12.1 % (11.5-14.5); Red Blood Cell (RBC) Count 4.92 mill/uL (4.70-6.10); White Blood Cell (WBC) Count 6.9 thou/uL (4.8-10.8)
[2021-09-20 07:30] LABS: ALT (SGPT) 37 U/L (8-55); AST (SGOT) 54 U/L (5-34); Albumin 3.4 g/dL (3.5-5.0); Alkaline Phosphatase 58 U/L (40-110); Anion Gap 22 mmol/L (10-20); BUN (Urea Nitrogen) 11 mg/dL (8.4-25.7); Bilirubin, Total 0.9 mg/dL (0.2-1.2); Calc. Creatinine Clearance 102 mL/min (70-130); Calcium 9.3 mg/dL (7.8-10.44); Carbon Dioxide 20 mmol/L (22-29); Cardiac Risk 2.7 (Less than 4.5); Chloride 97 mmol/L (98-107); Cholesterol 132 mg/dl (< 200 Desired); Estimated GFR 113; Globulin 3.6 g/dL (2.4-3.5); Glucose 87 mg/dL (70-105); HDL Cholesterol 49 mg/dL (>60 Neg Risk); LDL Cholesterol, Calculated 66 mg/dL; Potassium 3.6 mmol/L (3.5-5.1); Sodium 135 mmol/L (136-145); Triglycerides 83 mg/dL (Less than 150)
[2021-09-20 08:19] LABS: Hemoglobin A1c 4.9 % (4.0-6.0)
[2021-09-20] MEDS ORDERED: Thiamine 100 MG TAB PO SCH (09:00)
[2021-09-20 09:26] LABS: Band 27 % (5-11); Lymphocytes 6 % (21-51); MDiff Complete? YES; Macrocytosis SLIGHT = 6-15 cells (100X) (0-5/hpf); Monocytes 22 % (0-10); Neutrophil 40 % (42-75); Platelet Morphology Comment Appears Decreased; Polychromasia SLIGHT = 2-3 cells (100X) (0-2/hpf); Reactive Lymphocytes 5 % (0-10)
[2021-09-20] MEDS: Thiamine 100 MG TAB PO SCH (09:32)
[2021-09-20] MEDS: Aspirin Chewable 81 MG TAB PO SCH (09:33)
[2021-09-20] MEDS: Metoprolol Tartrate 25 MG TAB PO SCH ×2 (09:33→21:09)
[2021-09-20] MEDS: Multivit, Therapeutic 1 TAB PO SCH (09:33)
[2021-09-20] MEDS: Famotidine 20 MG TAB PO SCH ×2 (09:33→21:09)
[2021-09-20] MEDS: Folic Acid 1 MG TAB PO SCH (09:33)
[2021-09-20] MEDS: levETIRAcetam 500 MG TAB PO SCH ×2 (09:33→21:09)
[2021-09-20] MEDS ORDERED: Ipratropium/Albuterol Sulfate 4 GM AER IH PRN (12:32)
[2021-09-20] MEDS: Ipratropium/Albuterol Sulfate 4 GM AER IH SCH ×2 (13:12→19:34)
[2021-09-20] MEDS: Atorvastatin Calcium 40 MG TAB PO SCH (21:09)
[2021-09-21] MEDS: Nicotine 21 MG PATCH TD SCH ×2 (01:09→22:06)
[2021-09-21] MEDS: Ipratropium/Albuterol Sulfate 4 GM AER IH SCH ×4 (01:09→18:39)
[2021-09-21 07:21] LABS: ALT (SGPT) 33 U/L (8-55); AST (SGOT) 42 U/L (5-34); Albumin 3.6 g/dL (3.5-5.0); Alkaline Phosphatase 82 U/L (40-110); Anion Gap 21 mmol/L (10-20); BUN (Urea Nitrogen) 14 mg/dL (8.4-25.7); Bilirubin, Total 1.1 mg/dL (0.2-1.2); Calc. Creatinine Clearance 89 mL/min (70-130); Calcium 9.9 mg/dL (7.8-10.44); Carbon Dioxide 23 mmol/L (22-29); Cardiac Risk 2.8 (Less than 4.5); Chloride 99 mmol/L (98-107); Cholesterol 142 mg/dl (< 200 Desired); Estimated GFR 108; Glucose 101 mg/dL (70-105); HDL Cholesterol 50 mg/dL (>60 Neg Risk); LDL Cholesterol, Calculated 73 mg/dL; Magnesium 2.2 mg/dL (1.6-2.6); Protein, Total 7.6 g/dL (6.0-8.3); Sodium 140 mmol/L (136-145); Triglycerides 97 mg/dL (Less than 150)
[2021-09-21 07:40] LABS: HBSAB Concentration Less than 8.00 mIU/mL; Hep B Surf AB Non-Reactive (NonReactive)
[2021-09-21 07:54] LABS: Hep C IgG Ab Reflex HepC Qnt (NonReactive); Hep C Index 5.27 S/CO (0-0.79)
[2021-09-21 08:32] LABS: Band 21 % (5-11); Hemoglobin 18.4 g/dL (14.0-18.0); Lymphocytes 13 % (21-51); MDiff Complete? YES; Mean Corpuscular HGB CONC 33.5 g/dL (32.0-36.0); Mean Corpuscular Hemoglobin 36.8 pg (27.0-31.0); Monocytes 17 % (0-10); Neutrophil 48 % (42-75); Platelet Count 154 thou/uL (130-400); Platelet Morphology Comment Appears Adequate; RBC Distribution Width 12.2 % (11.5-14.5); RBC Morphology Normal; Reactive Lymphocytes 1 % (0-10); Red Blood Cell (RBC) Count 5.01 mill/uL (4.70-6.10); White Blood Cell (WBC) Count 7.6 thou/uL (4.8-10.8)
[2021-09-21] MEDS ORDERED: Potassium Chloride 20 MEQ TAB PO SCH (09:00)
[2021-09-21] MEDS: Aspirin Chewable 81 MG TAB PO SCH (09:44)
[2021-09-21] MEDS: Multivit, Therapeutic 1 TAB PO SCH (09:44)
[2021-09-21] MEDS: Thiamine 100 MG TAB PO SCH (09:44)
[2021-09-21] MEDS: Famotidine 20 MG TAB PO SCH ×2 (09:44→22:39)
[2021-09-21] MEDS: Folic Acid 1 MG TAB PO SCH (09:44)
[2021-09-21] MEDS: levETIRAcetam 500 MG TAB PO SCH ×2 (09:44→22:06)
[2021-09-21] MEDS: Metoprolol Tartrate 25 MG TAB PO SCH ×2 (09:44→22:06)
[2021-09-21] MEDS: Atorvastatin Calcium 40 MG TAB PO SCH (22:06)
[2021-09-22] MEDS: Ipratropium/Albuterol Sulfate 4 GM AER IH SCH ×4 (01:29→20:59)
[2021-09-22] MEDS: Famotidine 20 MG TAB PO SCH ×2 (08:11→21:00)
[2021-09-22] MEDS: Folic Acid 1 MG TAB PO SCH (08:11)
[2021-09-22] MEDS: Aspirin Chewable 81 MG TAB PO SCH (08:11)
[2021-09-22] MEDS: Metoprolol Tartrate 25 MG TAB PO SCH ×2 (08:11→21:00)
[2021-09-22] MEDS: levETIRAcetam 500 MG TAB PO SCH ×2 (08:12→21:00)
[2021-09-22] MEDS: Multivit, Therapeutic 1 TAB PO SCH (08:12)
[2021-09-22] MEDS ORDERED: Enoxaparin Sodium 40 MG/0.4 ML SYRINGE SC SCH (09:00)
[2021-09-22 10:23] LABS: ALT (SGPT) 31 U/L (8-55); AST (SGOT) 46 U/L (5-34); Alkaline Phosphatase 68 U/L (40-110); Anion Gap 17 mmol/L (10-20); BUN (Urea Nitrogen) 11 mg/dL (8.4-25.7); Calc. Creatinine Clearance 112 mL/min (70-130); Carbon Dioxide 22 mmol/L (22-29); Chloride 104 mmol/L (98-107); Estimated GFR 116; Globulin 3.7 g/dL (2.4-3.5); Glucose 100 mg/dL (70-105); Magnesium 1.8 mg/dL (1.6-2.6); Protein, Total 6.7 g/dL (6.0-8.3); Sodium 139 mmol/L (136-145)
[2021-09-22 10:30] LABS: HIV (1/2) Antibody/Antigen Non-Reactive (NonReactive); HIV 1/2 INDEX 0.09 S/CO (<1.00)
[2021-09-22] MEDS: Thiamine 100 MG TAB PO SCH (13:56)
[2021-09-22] MEDS: Magnesium 2 GM/50 ML(in water) 2 GM in Premix Bag 1 BAG IVPB SCH ×2 (13:57→16:03)
[2021-09-22 14:15] LABS: Band 11 % (5-11); Hemoglobin 17.7 g/dL (14.0-18.0); Lymphocytes 11 % (21-51); MDiff Complete? YES; Macrocytosis MODERATE=16-30 cells (100X) (0-5/hpf); Mean Corpuscular HGB CONC 32.5 g/dL (32.0-36.0); Mean Corpuscular Hemoglobin 36.4 pg (27.0-31.0); Mean Platelet Volume 9.5 fL (7.4-10.4); Monocytes 17 % (0-10); Neutrophil 60 % (42-75); Platelet Count 141 thou/uL (130-400); Platelet Morphology Comment Appears Adequate; Polychromasia SLIGHT = 2-3 cells (100X) (0-2/hpf); RBC Distribution Width 12.5 % (11.5-14.5); Red Blood Cell (RBC) Count 4.87 mill/uL (4.70-6.10); White Blood Cell (WBC) Count 7.3 thou/uL (4.8-10.8)
[2021-09-22] MEDS: Atorvastatin Calcium 40 MG TAB PO SCH (21:00)
[2021-09-22] MEDS: Acetaminophen 325 MG TAB PO PRN (21:01)
[2021-09-22] MEDS: Nicotine 21 MG PATCH TD SCH (21:02)
[2021-09-23] MEDS: Ipratropium/Albuterol Sulfate 4 GM AER IH SCH ×4 (00:31→17:43)
[2021-09-23 07:00] LABS: ALT (SGPT) 30 U/L (8-55); AST (SGOT) 45 U/L (5-34); Albumin 2.9 g/dL (3.5-5.0); Alkaline Phosphatase 63 U/L (40-110); Anion Gap 13 mmol/L (10-20); BUN (Urea Nitrogen) 10 mg/dL (8.4-25.7); Bilirubin, Total 1.1 mg/dL (0.2-1.2); Calc. Creatinine Clearance 121 mL/min (70-130); Calcium 8.8 mg/dL (7.8-10.44); Carbon Dioxide 25 mmol/L (22-29); Chloride 101 mmol/L (98-107); Estimated GFR 119; Globulin 3.3 g/dL (2.4-3.5); Glucose 87 mg/dL (70-105); Magnesium 1.9 mg/dL (1.6-2.6); Protein, Total 6.2 g/dL (6.0-8.3); Sodium 136 mmol/L (136-145)
[2021-09-23] MEDS ORDERED: Magnesium 2 GM/50 ML(in water) 2 GM in Premix Bag 1 BAG IVPB SCH (07:45)
[2021-09-23 08:07] LABS: Hemoglobin 15.1 g/dL (14.0-18.0); Mean Corpuscular Hemoglobin 37.8 pg (27.0-31.0); Mean Platelet Volume 7.8 fL (7.4-10.4); Platelet Count 194 thou/uL (130-400); RBC Distribution Width 11.9 % (11.5-14.5); Red Blood Cell (RBC) Count 3.99 mill/uL (4.70-6.10); White Blood Cell (WBC) Count 6.7 thou/uL (4.8-10.8)
[2021-09-23 08:11] LABS: Band 19 % (5-11); Lymphocytes 11 % (21-51); MDiff Complete? YES; Macrocytosis MODERATE=16-30 cells (100X) (0-5/hpf); Monocytes 15 % (0-10); Neutrophil 55 % (42-75); Platelet Morphology Comment Appears Adequate
[2021-09-23] MEDS: Potassium Chloride 20 MEQ TAB PO SCH ×2 (08:59→17:42)
[2021-09-23] MEDS: Enoxaparin Sodium 30 MG/0.3 ML SYRINGE SC SCH (08:59)
[2021-09-23] MEDS: Aspirin Chewable 81 MG TAB PO SCH (08:59)
[2021-09-23] MEDS: Multivit, Therapeutic 1 TAB PO SCH (09:00)
[2021-09-23] MEDS: Folic Acid 1 MG TAB PO SCH (09:00)
[2021-09-23] MEDS: levETIRAcetam 500 MG TAB PO SCH ×2 (09:00→21:28)
[2021-09-23] MEDS: Famotidine 20 MG TAB PO SCH ×2 (09:00→21:28)
[2021-09-23] MEDS: Metoprolol Tartrate 25 MG TAB PO SCH ×2 (09:00→21:29)
[2021-09-23] MEDS: Thiamine 100 MG TAB PO SCH (09:02)
[2021-09-23] MEDS: Atorvastatin Calcium 40 MG TAB PO SCH (21:28)
[2021-09-24] MEDS: Nicotine 21 MG PATCH TD SCH ×2 (01:36→20:29)
[2021-09-24] MEDS: Ipratropium/Albuterol Sulfate 4 GM AER IH SCH ×4 (01:36→18:29)
[2021-09-24 07:00] LABS: #Lymphocytes 1.2 thou/uL (1.20-3.40); #Monocytes 0.9 thou/uL (0.11-0.59); #Neutrophils 4.5 thou/uL (1.40-6.50); %Basophils 0.6 % (0.0-1.0); %Eosinophils 0.7 % (0.0-10.0); %Lymphocytes 17.4 % (21.0-51.0); %Monocytes 13.5 % (0.0-10.0); %Neutrophils 67.8 % (42.0-75.0); Hemoglobin 14.6 g/dL (14.0-18.0); Mean Corpuscular HGB CONC 33.3 g/dL (32.0-36.0); Mean Corpuscular Hemoglobin 37.1 pg (27.0-31.0); Mean Platelet Volume 7.5 fL (7.4-10.4); Platelet Count 230 thou/uL (130-400); RBC Distribution Width 11.9 % (11.5-14.5); Red Blood Cell (RBC) Count 3.95 mill/uL (4.70-6.10); White Blood Cell (WBC) Count 6.6 thou/uL (4.8-10.8)
[2021-09-24 07:20] LABS: ALT (SGPT) 30 U/L (8-55); AST (SGOT) 42 U/L (5-34); Albumin 2.8 g/dL (3.5-5.0); Alkaline Phosphatase 80 U/L (40-110); Anion Gap 13 mmol/L (10-20); BUN (Urea Nitrogen) 8 mg/dL (8.4-25.7); Bilirubin, Total 0.8 mg/dL (0.2-1.2); Calc. Creatinine Clearance 116 mL/min (70-130); Calcium 8.7 mg/dL (7.8-10.44); Carbon Dioxide 23 mmol/L (22-29); Chloride 104 mmol/L (98-107); Estimated GFR 117; Globulin 3.4 g/dL (2.4-3.5); Glucose 98 mg/dL (70-105); Magnesium 1.6 mg/dL (1.6-2.6); Potassium 3.8 mmol/L (3.5-5.1); Protein, Total 6.2 g/dL (6.0-8.3); Sodium 136 mmol/L (136-145)
[2021-09-24] MEDS ORDERED: Magnesium 2 GM/50 ML(in water) 2 GM in Premix Bag 1 BAG IVPB SCH (08:00)
[2021-09-24] MEDS: Multivit, Therapeutic 1 TAB PO SCH (09:23)
[2021-09-24] MEDS: Famotidine 20 MG TAB PO SCH ×2 (09:23→20:29)
[2021-09-24] MEDS: Enoxaparin Sodium 30 MG/0.3 ML SYRINGE SC SCH (09:23)
[2021-09-24] MEDS: Aspirin Chewable 81 MG TAB PO SCH (09:23)
[2021-09-24] MEDS: Metoprolol Tartrate 25 MG TAB PO SCH ×2 (09:23→20:29)
[2021-09-24] MEDS: Folic Acid 1 MG TAB PO SCH (09:23)
[2021-09-24] MEDS: levETIRAcetam 500 MG TAB PO SCH ×2 (09:23→20:29)
[2021-09-24] MEDS: Thiamine 100 MG TAB PO SCH ×2 (09:24→14:13)
[2021-09-24] MEDS: Atorvastatin Calcium 40 MG TAB PO SCH (20:29)
[2021-09-25] MEDS: Ipratropium/Albuterol Sulfate 4 GM AER IH SCH ×4 (01:10→17:36)
[2021-09-25 06:51] LABS: #Eosinphils 0.1 thou/uL (0.0-0.7); #Lymphocytes 1.2 thou/uL (1.20-3.40); #Monocytes 0.8 thou/uL (0.11-0.59); #Neutrophils 4.3 thou/uL (1.40-6.50); %Basophils 0.5 % (0.0-1.0); %Eosinophils 0.8 % (0.0-10.0); %Lymphocytes 19.1 % (21.0-51.0); %Monocytes 12.6 % (0.0-10.0); Hemoglobin 14.4 g/dL (14.0-18.0); Mean Corpuscular HGB CONC 33.4 g/dL (32.0-36.0); Mean Corpuscular Hemoglobin 37.1 pg (27.0-31.0); Mean Platelet Volume 7.6 fL (7.4-10.4); Platelet Count 281 thou/uL (130-400); RBC Distribution Width 11.7 % (11.5-14.5); Red Blood Cell (RBC) Count 3.87 mill/uL (4.70-6.10); White Blood Cell (WBC) Count 6.4 thou/uL (4.8-10.8)
[2021-09-25 07:00] LABS: ALT (SGPT) 29 U/L (8-55); AST (SGOT) 37 U/L (5-34); Albumin 2.8 g/dL (3.5-5.0); Alkaline Phosphatase 91 U/L (40-110); Anion Gap 13 mmol/L (10-20); BUN (Urea Nitrogen) 9 mg/dL (8.4-25.7); Bilirubin, Total 0.6 mg/dL (0.2-1.2); Calc. Creatinine Clearance 110 mL/min (70-130); Calcium 8.9 mg/dL (7.8-10.44); Carbon Dioxide 23 mmol/L (22-29); Chloride 102 mmol/L (98-107); Estimated GFR 115; Globulin 3.4 g/dL (2.4-3.5); Glucose 96 mg/dL (70-105); Magnesium 1.6 mg/dL (1.6-2.6); Potassium 3.5 mmol/L (3.5-5.1); Protein, Total 6.2 g/dL (6.0-8.3); Sodium 134 mmol/L (136-145)
[2021-09-25] MEDS ORDERED: Magnesium 2 GM/50 ML(in water) 2 GM in Premix Bag 1 BAG IVPB SCH (08:00)
[2021-09-25] MEDS ORDERED: Potassium Chloride 20 MEQ TAB PO SCH (08:00)
[2021-09-25] MEDS: Enoxaparin Sodium 30 MG/0.3 ML SYRINGE SC SCH (09:09)
[2021-09-25] MEDS: Metoprolol Tartrate 25 MG TAB PO SCH ×2 (09:09→20:40)
[2021-09-25] MEDS: levETIRAcetam 500 MG TAB PO SCH ×2 (09:09→20:40)
[2021-09-25] MEDS: Multivit, Therapeutic 1 TAB PO SCH (09:09)
[2021-09-25] MEDS: Aspirin Chewable 81 MG TAB PO SCH (09:10)
[2021-09-25] MEDS: Folic Acid 1 MG TAB PO SCH (09:10)
[2021-09-25] MEDS: Famotidine 20 MG TAB PO SCH ×2 (09:10→20:40)
[2021-09-25 11:37] LABS: HCV RNA, log10 2.949 (.); Hep C PCR-Quant 890 IU/mL (.)
[2021-09-25] MEDS: Thiamine 100 MG TAB PO SCH (13:26)
[2021-09-25] MEDS: PHOS-NAK 1 PKT PACK PO SCH (17:34)
[2021-09-26] MEDS: Nicotine 21 MG PATCH TD SCH ×2 (02:13→12:07)
[2021-09-26] MEDS: Ipratropium/Albuterol Sulfate 4 GM AER IH SCH ×4 (02:13→18:37)
[2021-09-26] MEDS: Metoprolol Tartrate 25 MG TAB PO SCH ×2 (08:41→21:16)
[2021-09-26] MEDS: PHOS-NAK 1 PKT PACK PO SCH ×2 (08:41→16:53)
[2021-09-26] MEDS: Multivit, Therapeutic 1 TAB PO SCH (08:41)
[2021-09-26] MEDS: levETIRAcetam 500 MG TAB PO SCH ×2 (08:41→21:15)
[2021-09-26] MEDS: Folic Acid 1 MG TAB PO SCH (08:41)
[2021-09-26] MEDS: Enoxaparin Sodium 30 MG/0.3 ML SYRINGE SC SCH (08:41)
[2021-09-26] MEDS: Aspirin Chewable 81 MG TAB PO SCH (08:41)
[2021-09-26] MEDS: Thiamine 100 MG TAB PO SCH (08:41)
[2021-09-26] MEDS: Famotidine 20 MG TAB PO SCH ×2 (08:41→21:15)
[2021-09-26] MEDS: Acetaminophen 325 MG TAB PO PRN (21:16)
[2021-09-27] MEDS: Ipratropium/Albuterol Sulfate 4 GM AER IH SCH ×4 (00:52→18:22)
[2021-09-27] MEDS: Nicotine 21 MG PATCH TD SCH (02:00)
[2021-09-27] MEDS: Acetaminophen 325 MG TAB PO PRN (03:00)
[2021-09-27] MEDS: Enoxaparin Sodium 30 MG/0.3 ML SYRINGE SC SCH (08:42)
[2021-09-27] MEDS: PHOS-NAK 1 PKT PACK PO SCH ×2 (08:43→17:42)
[2021-09-27] MEDS: Thiamine 100 MG TAB PO SCH (08:43)
[2021-09-27] MEDS: Multivit, Therapeutic 1 TAB PO SCH (08:43)
[2021-09-27] MEDS: Folic Acid 1 MG TAB PO SCH (08:43)
[2021-09-27] MEDS: Aspirin Chewable 81 MG TAB PO SCH (08:43)
[2021-09-27] MEDS: Metoprolol Tartrate 25 MG TAB PO SCH ×2 (08:43→20:54)
[2021-09-27] MEDS: Famotidine 20 MG TAB PO SCH ×2 (08:43→20:54)
[2021-09-27] MEDS: levETIRAcetam 500 MG TAB PO SCH ×2 (08:43→20:54)
[2021-09-28] MEDS: Ipratropium/Albuterol Sulfate 4 GM AER IH SCH ×4 (01:24→18:31)
[2021-09-28] MEDS: Nicotine 21 MG PATCH TD SCH ×2 (02:47→21:00)
[2021-09-28] MEDS: Folic Acid 1 MG TAB PO SCH (08:35)
[2021-09-28] MEDS: Metoprolol Tartrate 25 MG TAB PO SCH ×2 (08:35→20:59)
[2021-09-28] MEDS: levETIRAcetam 500 MG TAB PO SCH ×2 (08:35→20:59)
[2021-09-28] MEDS: Multivit, Therapeutic 1 TAB PO SCH (08:35)
[2021-09-28] MEDS: PHOS-NAK 1 PKT PACK PO SCH ×2 (08:35→18:31)
[2021-09-28] MEDS: Aspirin Chewable 81 MG TAB PO SCH (08:35)
[2021-09-28] MEDS: Famotidine 20 MG TAB PO SCH ×2 (08:35→20:59)
[2021-09-28] MEDS: Thiamine 100 MG TAB PO SCH (08:36)
[2021-09-28] MEDS: Enoxaparin Sodium 30 MG/0.3 ML SYRINGE SC SCH (08:36)
[2021-09-28] MEDS: Acetaminophen 325 MG TAB PO PRN (21:16)
[2021-09-29] MEDS: Ipratropium/Albuterol Sulfate 4 GM AER IH SCH ×5 (01:55→23:36)
[2021-09-29] MEDS: Metoprolol Tartrate 25 MG TAB PO SCH ×2 (07:52→20:44)
[2021-09-29] MEDS: Thiamine 100 MG TAB PO SCH (07:52)
[2021-09-29] MEDS: Folic Acid 1 MG TAB PO SCH (07:52)
[2021-09-29] MEDS: Enoxaparin Sodium 30 MG/0.3 ML SYRINGE SC SCH (07:52)
[2021-09-29] MEDS: Multivit, Therapeutic 1 TAB PO SCH (07:52)
[2021-09-29] MEDS: levETIRAcetam 500 MG TAB PO SCH ×2 (07:52→20:44)
[2021-09-29] MEDS: Famotidine 20 MG TAB PO SCH ×2 (07:52→20:43)
[2021-09-29] MEDS: Aspirin Chewable 81 MG TAB PO SCH (07:53)
[2021-09-29] MEDS: PHOS-NAK 1 PKT PACK PO SCH ×2 (07:53→17:35)
[2021-09-29] MEDS ORDERED: Nicotine 14 MG PATCH TD PRN (15:56)
[2021-09-29] MEDS: Acetaminophen 325 MG TAB PO PRN (20:50)
[2021-09-30] MEDS: Ipratropium/Albuterol Sulfate 4 GM AER IH SCH ×3 (07:02→19:32)
[2021-09-30] MEDS: Metoprolol Tartrate 25 MG TAB PO SCH ×2 (09:35→20:26)
[2021-09-30] MEDS: levETIRAcetam 500 MG TAB PO SCH ×2 (09:35→20:26)
[2021-09-30] MEDS: Magnesium Oxide 400 MG TAB PO SCH (09:35)
[2021-09-30] MEDS: Multivit, Therapeutic 1 TAB PO SCH (09:35)
[2021-09-30] MEDS: Aspirin Chewable 81 MG TAB PO SCH (09:35)
[2021-09-30] MEDS: Famotidine 20 MG TAB PO SCH ×2 (09:35→20:26)
[2021-09-30] MEDS: PHOS-NAK 1 PKT PACK PO SCH ×2 (09:35→18:22)
[2021-09-30] MEDS: Folic Acid 1 MG TAB PO SCH (09:35)
[2021-09-30] MEDS: Enoxaparin Sodium 30 MG/0.3 ML SYRINGE SC SCH (09:36)
[2021-09-30] MEDS: Thiamine 100 MG TAB PO SCH (10:09)
[2021-10-01] MEDS: Ipratropium/Albuterol Sulfate 4 GM AER IH SCH ×4 (00:46→18:26)
[2021-10-01 06:49] LABS: #Basophils 0.1 thou/uL (0.0-0.2); #Eosinphils 0.1 thou/uL (0.0-0.7); #Lymphocytes 1.5 thou/uL (1.20-3.40); #Neutrophils 5.3 thou/uL (1.40-6.50); %Basophils 0.8 % (0.0-1.0); %Eosinophils 0.7 % (0.0-10.0); %Lymphocytes 18.9 % (21.0-51.0); %Monocytes 12.7 % (0.0-10.0); %Neutrophils 66.9 % (42.0-75.0); Hemoglobin 14.3 g/dL (14.0-18.0); Mean Corpuscular HGB CONC 33.3 g/dL (32.0-36.0); Mean Corpuscular Hemoglobin 37.2 pg (27.0-31.0); Mean Platelet Volume 6.8 fL (7.4-10.4); Platelet Count 410 thou/uL (130-400); RBC Distribution Width 11.8 % (11.5-14.5); Red Blood Cell (RBC) Count 3.84 mill/uL (4.70-6.10)
[2021-10-01 07:11] LABS: Anion Gap 13 mmol/L (10-20); BUN (Urea Nitrogen) 10 mg/dL (8.4-25.7); Calc. Creatinine Clearance 102 mL/min (70-130); Calcium 9.2 mg/dL (7.8-10.44); Carbon Dioxide 26 mmol/L (22-29); Chloride 100 mmol/L (98-107); Estimated GFR 113; Glucose 81 mg/dL (70-105); Potassium 4.1 mmol/L (3.5-5.1); Sodium 135 mmol/L (136-145)
[2021-10-01] MEDS: Multivit, Therapeutic 1 TAB PO SCH (08:50)
[2021-10-01] MEDS: Thiamine 100 MG TAB PO SCH (08:50)
[2021-10-01] MEDS: Aspirin Chewable 81 MG TAB PO SCH (08:50)
[2021-10-01] MEDS: Folic Acid 1 MG TAB PO SCH (08:50)
[2021-10-01] MEDS: Magnesium Oxide 400 MG TAB PO SCH (08:50)
[2021-10-01] MEDS: Famotidine 20 MG TAB PO SCH ×2 (08:50→20:52)
[2021-10-01] MEDS: Enoxaparin Sodium 30 MG/0.3 ML SYRINGE SC SCH (08:50)
[2021-10-01] MEDS: levETIRAcetam 500 MG TAB PO SCH ×2 (08:50→20:52)
[2021-10-01] MEDS: Metoprolol Tartrate 25 MG TAB PO SCH ×2 (08:50→20:52)
[2021-10-02] MEDS: Ipratropium/Albuterol Sulfate 4 GM AER IH SCH ×6 (06:56→23:26)
[2021-10-02] MEDS: Magnesium Oxide 400 MG TAB PO SCH (08:48)
[2021-10-02] MEDS: Aspirin Chewable 81 MG TAB PO SCH (08:48)
[2021-10-02] MEDS: Famotidine 20 MG TAB PO SCH ×2 (08:48→20:01)
[2021-10-02] MEDS: Metoprolol Tartrate 25 MG TAB PO SCH ×2 (08:48→20:01)
[2021-10-02] MEDS: Thiamine 100 MG TAB PO SCH (08:48)
[2021-10-02] MEDS: Folic Acid 1 MG TAB PO SCH (08:49)
[2021-10-02] MEDS: Multivit, Therapeutic 1 TAB PO SCH (08:49)
[2021-10-02] MEDS: Enoxaparin Sodium 30 MG/0.3 ML SYRINGE SC SCH (08:49)
[2021-10-02] MEDS: levETIRAcetam 500 MG TAB PO SCH ×2 (08:49→20:01)
[2021-10-03] MEDS: Ipratropium/Albuterol Sulfate 4 GM AER IH SCH ×2 (07:14→13:22)
[2021-10-03 08:25] VITALS: BP 107/72; TEMP 98.9
[2021-10-03] MEDS: Multivit, Therapeutic 1 TAB PO SCH (08:34)
[2021-10-03] MEDS: levETIRAcetam 500 MG TAB PO SCH (08:34)
[2021-10-03] MEDS: Aspirin Chewable 81 MG TAB PO SCH (08:34)
[2021-10-03] MEDS: Folic Acid 1 MG TAB PO SCH (08:34)
[2021-10-03] MEDS: Metoprolol Tartrate 25 MG TAB PO SCH (08:34)
[2021-10-03] MEDS: Thiamine 100 MG TAB PO SCH (08:34)
[2021-10-03] MEDS: Magnesium Oxide 400 MG TAB PO SCH (08:34)
[2021-10-03] MEDS: Famotidine 20 MG TAB PO SCH (08:34)
[2021-10-03] MEDS: Enoxaparin Sodium 30 MG/0.3 ML SYRINGE SC SCH (08:35)
== END 2021-10-03 14:57 | disposition home or self-care (01) | DRG 896 ==
LOC: ERS 21:25 → NEURO 23:34 → OBSVTOIN 09-18 11:57 → T4-A 09-19 18:01
PROVIDERS: ADMIT Internal Medicine; ATTEND Internal Medicine
DX: F10.239 Alcohol dependence with withdrawal, unspecified (principal); U07.1 COVID-19; G92.8 Other toxic encephalopathy; E87.2 Acidosis; E87.1 Hypo-osmolality and hyponatremia; R64 Cachexia; Z68.1 Body mass index [BMI] 19.9 or less, adult; E46 Unspecified protein-calorie malnutrition; I24.8 Other forms of acute ischemic heart disease; T67.5XXA Heat exhaustion, unspecified, initial encounter; G40.909 Epilepsy, unspecified, not intractable, without status epilepticus; B18.2 Chronic viral hepatitis C; E87.6 Hypokalemia; D69.59 Other secondary thrombocytopenia; E86.0 Dehydration; N18.1 Chronic kidney disease, stage 1; I12.9 Hypertensive chronic kidney disease with stage 1 through stage 4 chronic kidney disease, or unspecified chronic kidney disease; D63.1 Anemia in chronic kidney disease; K70.10 Alcoholic hepatitis without ascites; Y90.0 Blood alcohol level of less than 20 mg/100 ml; Z98.890 Other specified postprocedural states; Z59.00 Homelessness unspecified; Z91.14 Patient's other noncompliance with medication regimen
CPT/HCPCS: 36415; 70450; 70551; 71045; 76705; 80048; 80053; 80061; 80306; 80307; 81001; 82553; 82570; 83036; 83735; 83930; 83935; 84100; 84133; 84146; 84300; 84443; 84484; 84550; 84560; 85025; 85060; 86140; 86706; 86780; 86803; 87324; 87389; 87449; 87522; 93005; 93010; 93306; 93880; 94760; 96361; 96365; 96366; 96375; G0378; J1650; J2250; J3411; J3475; J3480; J7042; J7050; U0003; U0005

== ENCOUNTER 2023-03-27 11:06 | Inpatient (IN) | payer SELFPAY ==
[2023-03-27 11:33] LABS: #Monocytes 1.5 thou/uL (0.11-0.59); #Neutrophils 9.6 thou/uL (1.40-6.50); %Basophils 0.3 % (0.0-1.0); %Eosinophils 0.1 % (0.0-10.0); %Lymphocytes 6.2 % (21.0-51.0); %Monocytes 12.7 % (0.0-10.0); %Neutrophils 80.3 % (42.0-75.0); Hematocrit 46.4 % (42.0-52.0); Hemoglobin 16.5 g/dL (14.0-18.0); Mean Corpuscular HGB CONC 35.6 g/dL (32.0-36.0); Mean Corpuscular Hemoglobin 35.9 pg (27.0-31.0); Mean Corpuscular Volume 101.1 fl (78.0-98.0); Mean Platelet Volume 8.7 fL (7.4-10.4); Platelet Count 302 10x3/uL (130-400); RBC Distribution Width 11.5 % (11.5-14.5); Red Blood Cell (RBC) Count 4.59 mill/uL (4.70-6.10)
[2023-03-27 11:59] LABS: ALT (SGPT) 28 U/L (8-55); AST (SGOT) 69 U/L (5-34); Albumin 3.9 g/dL (3.4-4.8); Alkaline Phosphatase 90 U/L (40-110); Anion Gap 17 mmol/L (10-20); BUN (Urea Nitrogen) 12 mg/dL (8.4-25.7); Calc. Creatinine Clearance 0 mL/min (70-130); Calcium 9.2 mg/dL (7.8-10.44); Carbon Dioxide 26 mmol/L (23-31); Chloride 88 mmol/L (98-107); Estimated GFR 104; Globulin 3.5 g/dL (2.4-3.5); Glucose 107 mg/dL (80-115); Protein, Total 7.4 g/dL (5.8-8.1); Sodium 127 mmol/L (136-145)
[2023-03-27] MEDS ORDERED: methylPREDNISolone Sod Succ/PF 125 MG/2 ML VIAL ONE (12:43)
[2023-03-27] MEDS ORDERED: Ipratropium/Albuterol 3 ML NEB ONE (12:43)
[2023-03-27 13:00] LABS: Magnesium 1.9 mg/dL (1.6-2.6)
[2023-03-27 13:55] LABS: SARS-CoV-2 NAA Rapid Test Not Detected (NotDetected)
[2023-03-27] MEDS ORDERED: cefTRIAXone (ROCEPHIN) 1 GM VIAL ONE (14:10)
[2023-03-27] MEDS ORDERED: Sodium Chloride 0.9% 100 ML ONE (14:10)
[2023-03-27] MEDS ORDERED: HYDROcodone/Acetaminophen 5/325 mg Tablet PO PRN (14:13)
[2023-03-27] MEDS ORDERED: Ondansetron PF 4 MG/2 ML Vial IVP PRN (14:13)
[2023-03-27] MEDS ORDERED: Acetaminophen 325 MG TAB PO PRN (14:13)
[2023-03-27] MEDS ORDERED: Enoxaparin 40 MG (0.4 mL) SYRINGE SC SCH (14:15)
[2023-03-27] MEDS ORDERED: Lorazepam 2 MG/ML VIAL IM PRN (14:51)
[2023-03-27] MEDS ORDERED: Ondansetron ODT 4 MG TAB PO PRN (14:51)
[2023-03-27] MEDS ORDERED: Lorazepam 1 MG TAB PO PRN (14:51)
[2023-03-27] MEDS ORDERED: Electrolyte Replacement Protocol 1 EACH FS SCH (15:00)
[2023-03-27] MEDS ORDERED: Azithromycin 500 MG VIAL ONE (15:32)
[2023-03-27] MEDS ORDERED: Lorazepam 1 MG TAB ONE (15:38)
[2023-03-27] MEDS: Lorazepam 1 MG TAB PO SCH ×2 (16:49→20:30)
[2023-03-27] MEDS: Azithromycin 500 MG in Sodium Chloride 0.9% 250 ML 250 ML IVPB SCH (16:50)
[2023-03-27] MEDS: Nicotine 14 MG PATCH TD SCH (16:58)
[2023-03-27] MEDS: Thiamine HCl 200 MG/2 ML VIAL SLOW IVP SCH (17:00)
[2023-03-27 17:27] VITALS: BMI 18.8
[2023-03-27] MEDS: Budesonide 0.5 MG/2 ML NEB INH SCH (18:43)
[2023-03-27 18:44] LABS: Amphetamine Not Detected (NotDetected); Barbiturates Screen Not Detected (NotDetected); Benzodiazepine Screen Not Detected (NotDetected); Cocaine Metabolite Screen Not Detected (NotDetected); Methadone Not Detected (NotDetected); Methamphetamine Not Detected (NotDetected); Opiate Screen Not Detected (NotDetected); Oxycodone Screen Not Detected (NotDetected); Phencyclidine (PCP) Not Detected (NotDetected); THC/Cannabinoid Screen Detected (NotDetected); Tricyclic Screen Not Detected (NotDetected)
[2023-03-27] MEDS ORDERED: Magnesium 2 GM/50 ML(in water) 2 GM in Premix 1 BAG IVPB SCH (20:15)
[2023-03-27] MEDS: levETIRAcetam 500 MG TAB PO SCH (20:30)
[2023-03-27] MEDS: Famotidine 20 MG TAB PO SCH (20:30)
[2023-03-27] MEDS: Folic Acid 1 MG TAB PO SCH (20:30)
[2023-03-27] MEDS: Multivit, Therapeutic 1 TAB PO SCH (20:30)
[2023-03-27] MEDS ORDERED: Metoprolol Tartrate 25 MG TAB PO SCH (21:00)
[2023-03-28] MEDS: Lorazepam 1 MG TAB PO SCH ×4 (03:21→20:12)
[2023-03-28 04:58] LABS: #Neutrophils 10.7 thou/uL (1.40-6.50); %Basophils 0.2 % (0.0-1.0); %Lymphocytes 4.5 % (21.0-51.0); %Monocytes 7.8 % (0.0-10.0); %Neutrophils 87.2 % (42.0-75.0); Hematocrit 38.2 % (42.0-52.0); Mean Corpuscular HGB CONC 35.3 g/dL (32.0-36.0); Mean Corpuscular Volume 101.9 fl (78.0-98.0); Platelet Count 268 10x3/uL (130-400); RBC Distribution Width 11.5 % (11.5-14.5); Red Blood Cell (RBC) Count 3.75 mill/uL (4.70-6.10); White Blood Cell (WBC) Count 12.3 10x3/uL (4.8-10.8)
[2023-03-28 05:13] LABS: Hemoglobin 13.5 g/dL (14.0-18.0)
[2023-03-28 05:20] LABS: Anion Gap 13 mmol/L (10-20); BUN (Urea Nitrogen) 10 mg/dL (8.4-25.7); Calc. Creatinine Clearance 116 mL/min (70-130); Calcium 8.5 mg/dL (7.8-10.44); Carbon Dioxide 25 mmol/L (23-31); Chloride 99 mmol/L (98-107); Estimated GFR 111; Glucose 151 mg/dL (80-115); Potassium 3.7 mmol/L (3.5-5.1); Sodium 133 mmol/L (136-145)
[2023-03-28] MEDS: Ipratropium/Albuterol 3 ML NEB NEB SCH ×4 (06:35→22:55)
[2023-03-28] MEDS: Budesonide 0.5 MG/2 ML NEB INH SCH ×2 (06:40→18:23)
[2023-03-28] MEDS: levETIRAcetam 500 MG TAB PO SCH ×2 (08:16→20:12)
[2023-03-28] MEDS: predniSONE 20 MG TAB PO SCH (08:16)
[2023-03-28] MEDS: Aspirin Chewable 81 MG TAB PO SCH (08:16)
[2023-03-28] MEDS: Enoxaparin 40 MG (0.4 mL) SYRINGE SC SCH (08:16)
[2023-03-28] MEDS: Famotidine 20 MG TAB PO SCH ×2 (08:16→20:12)
[2023-03-28] MEDS: cefTRIAXone\\ROCEPHIN 1 GM in Sodium Chloride 0.9% 100 ML IVPB SCH (13:00)
[2023-03-28] MEDS: Azithromycin 500 MG in Sodium Chloride 0.9% 250 ML 250 ML IVPB SCH (14:15)
[2023-03-28] MEDS: Nicotine 14 MG PATCH TD SCH (14:15)
[2023-03-28] MEDS: Thiamine HCl 200 MG/2 ML VIAL SLOW IVP SCH (14:16)
[2023-03-28] MEDS ORDERED: Lorazepam 1 MG TAB PO PRN (14:52)
[2023-03-28] MEDS: Multivit, Therapeutic 1 TAB PO SCH (20:12)
[2023-03-28] MEDS: guaiFENesin/DM ER PO SCH (20:12)
[2023-03-28] MEDS: Folic Acid 1 MG TAB PO SCH (20:12)
[2023-03-29] MEDS: Ipratropium/Albuterol 3 ML NEB NEB SCH ×6 (03:05→23:11)
[2023-03-29] MEDS: Lorazepam 1 MG TAB PO SCH ×2 (03:51→08:07)
[2023-03-29 06:25] LABS: #Monocytes 1.4 thou/uL (0.11-0.59); #Neutrophils 11.9 thou/uL (1.40-6.50); %Basophils 0.2 % (0.0-1.0); %Lymphocytes 9.4 % (21.0-51.0); %Monocytes 9.2 % (0.0-10.0); %Neutrophils 80.5 % (42.0-75.0); Hematocrit 38.9 % (42.0-52.0); Hemoglobin 13.7 g/dL (14.0-18.0); Mean Corpuscular HGB CONC 35.2 g/dL (32.0-36.0); Mean Corpuscular Hemoglobin 35.8 pg (27.0-31.0); Mean Corpuscular Volume 101.6 fl (78.0-98.0); Mean Platelet Volume 8.9 fL (7.4-10.4); Platelet Count 305 10x3/uL (130-400); RBC Distribution Width 11.9 % (11.5-14.5); Red Blood Cell (RBC) Count 3.83 mill/uL (4.70-6.10); White Blood Cell (WBC) Count 14.7 10x3/uL (4.8-10.8)
[2023-03-29 06:45] LABS: ALT (SGPT) 22 U/L (8-55); AST (SGOT) 31 U/L (5-34); Albumin 3.2 g/dL (3.4-4.8); Alkaline Phosphatase 88 U/L (40-110); Anion Gap 11 mmol/L (10-20); BUN (Urea Nitrogen) 11 mg/dL (8.4-25.7); Bilirubin, Total 0.3 mg/dL (0.2-1.2); Calc. Creatinine Clearance 111 mL/min (70-130); Calcium 8.8 mg/dL (7.8-10.44); Carbon Dioxide 27 mmol/L (23-31); Chloride 101 mmol/L (98-107); Estimated GFR 109; Glucose 120 mg/dL (80-115); Potassium 3.2 mmol/L (3.5-5.1); Protein, Total 6.2 g/dL (5.8-8.1); Sodium 136 mmol/L (136-145)
[2023-03-29] MEDS ORDERED: Potassium Chloride 20 MEQ TAB PO SCH (08:00)
[2023-03-29] MEDS: Enoxaparin 40 MG (0.4 mL) SYRINGE SC SCH (08:06)
[2023-03-29] MEDS: levETIRAcetam 500 MG TAB PO SCH ×2 (08:06→21:23)
[2023-03-29] MEDS: Famotidine 20 MG TAB PO SCH ×2 (08:07→21:23)
[2023-03-29] MEDS: guaiFENesin/DM ER PO SCH ×2 (08:07→21:24)
[2023-03-29] MEDS: predniSONE 20 MG TAB PO SCH (08:07)
[2023-03-29] MEDS: Aspirin Chewable 81 MG TAB PO SCH (08:07)
[2023-03-29] MEDS: Budesonide 0.5 MG/2 ML NEB INH SCH ×2 (08:15→18:49)
[2023-03-29] MEDS: Lorazepam 0.5 MG TAB PO SCH ×2 (14:02→21:23)
[2023-03-29] MEDS: Thiamine HCl 200 MG/2 ML VIAL SLOW IVP SCH (14:02)
[2023-03-29] MEDS: Nicotine 14 MG PATCH TD SCH (14:03)
[2023-03-29] MEDS: cefTRIAXone\\ROCEPHIN 1 GM in Sodium Chloride 0.9% 100 ML IVPB SCH (14:04)
[2023-03-29] MEDS ORDERED: Lorazepam 1 MG TAB PO PRN (14:52)
[2023-03-29 17:12] LABS: Potassium 3.9 mmol/L (3.5-5.1)
[2023-03-29] MEDS: Azithromycin 500 MG in Sodium Chloride 0.9% 250 ML 250 ML IVPB SCH (17:20)
[2023-03-29] MEDS: Folic Acid 1 MG TAB PO SCH (21:23)
[2023-03-29] MEDS: Multivit, Therapeutic 1 TAB PO SCH (21:23)
[2023-03-30] MEDS: Ipratropium/Albuterol 3 ML NEB NEB SCH ×6 (02:55→23:15)
[2023-03-30] MEDS: Lorazepam 0.5 MG TAB PO SCH ×2 (03:13→09:44)
[2023-03-30] MEDS: Budesonide 0.5 MG/2 ML NEB INH SCH ×2 (07:30→19:08)
[2023-03-30] MEDS: Thiamine 100 MG TAB PO SCH (09:43)
[2023-03-30] MEDS: levETIRAcetam 500 MG TAB PO SCH ×2 (09:43→21:07)
[2023-03-30] MEDS: Famotidine 20 MG TAB PO SCH ×2 (09:43→21:07)
[2023-03-30] MEDS: predniSONE 20 MG TAB PO SCH (09:43)
[2023-03-30] MEDS: guaiFENesin/DM ER PO SCH ×2 (09:44→21:07)
[2023-03-30] MEDS: Aspirin Chewable 81 MG TAB PO SCH (09:44)
[2023-03-30] MEDS: Enoxaparin 40 MG (0.4 mL) SYRINGE SC SCH (09:46)
[2023-03-30 13:18] LABS: #Monocytes 1.2 thou/uL (0.11-0.59); #Neutrophils 13.1 thou/uL (1.40-6.50); %Basophils 0.3 % (0.0-1.0); %Eosinophils 0.1 % (0.0-10.0); %Lymphocytes 6.8 % (21.0-51.0); %Monocytes 7.8 % (0.0-10.0); %Neutrophils 84.1 % (42.0-75.0); Mean Corpuscular HGB CONC 34.8 g/dL (32.0-36.0); Mean Corpuscular Volume 103.5 fl (78.0-98.0); Mean Platelet Volume 8.5 fL (7.4-10.4); Platelet Count 349 10x3/uL (130-400); RBC Distribution Width 11.8 % (11.5-14.5); Red Blood Cell (RBC) Count 4.83 mill/uL (4.70-6.10); White Blood Cell (WBC) Count 15.6 10x3/uL (4.8-10.8)
[2023-03-30] MEDS: Nicotine 14 MG PATCH TD SCH ×2 (13:20→13:21)
[2023-03-30] MEDS: cefTRIAXone\\ROCEPHIN 1 GM in Sodium Chloride 0.9% 100 ML IVPB SCH (13:20)
[2023-03-30 13:21] LABS: Hemoglobin 17.4 g/dL (14.0-18.0)
[2023-03-30] MEDS ORDERED: Lorazepam 0.5 MG TAB PO PRN (14:52)
[2023-03-30] MEDS: Azithromycin 500 MG in Sodium Chloride 0.9% 250 ML 250 ML IVPB SCH (15:34)
[2023-03-30] MEDS: Folic Acid 1 MG TAB PO SCH (21:07)
[2023-03-30] MEDS: Multivit, Therapeutic 1 TAB PO SCH (21:07)
[2023-03-31] MEDS: Ipratropium/Albuterol 3 ML NEB NEB SCH ×6 (02:30→22:19)
[2023-03-31] MEDS: Budesonide 0.5 MG/2 ML NEB INH SCH ×2 (07:15→18:31)
[2023-03-31] MEDS: Enoxaparin 40 MG (0.4 mL) SYRINGE SC SCH (09:02)
[2023-03-31] MEDS: levETIRAcetam 500 MG TAB PO SCH ×2 (09:03→20:15)
[2023-03-31] MEDS: guaiFENesin/DM ER PO SCH ×2 (09:03→20:15)
[2023-03-31] MEDS: Famotidine 20 MG TAB PO SCH ×2 (09:03→20:15)
[2023-03-31] MEDS: predniSONE 20 MG TAB PO SCH (09:03)
[2023-03-31] MEDS: Aspirin Chewable 81 MG TAB PO SCH (09:03)
[2023-03-31] MEDS: Thiamine 100 MG TAB PO SCH (09:03)
[2023-03-31] MEDS: cefTRIAXone\\ROCEPHIN 1 GM in Sodium Chloride 0.9% 100 ML IVPB SCH (13:32)
[2023-03-31] MEDS: Nicotine 14 MG PATCH TD SCH (13:33)
[2023-03-31] MEDS: Azithromycin 500 MG in Sodium Chloride 0.9% 250 ML 250 ML IVPB SCH (16:58)
[2023-03-31] MEDS: Multivit, Therapeutic 1 TAB PO SCH (20:15)
[2023-03-31] MEDS: Folic Acid 1 MG TAB PO SCH (20:15)
[2023-04-01] MEDS: Ipratropium/Albuterol 3 ML NEB NEB SCH ×6 (02:32→21:53)
[2023-04-01] MEDS: Budesonide 0.5 MG/2 ML NEB INH SCH ×2 (07:32→18:27)
[2023-04-01] MEDS: Enoxaparin 40 MG (0.4 mL) SYRINGE SC SCH (09:02)
[2023-04-01] MEDS: Aspirin Chewable 81 MG TAB PO SCH (09:02)
[2023-04-01] MEDS: guaiFENesin/DM ER PO SCH ×2 (09:02→20:46)
[2023-04-01] MEDS: levETIRAcetam 500 MG TAB PO SCH ×2 (09:02→20:46)
[2023-04-01] MEDS: Famotidine 20 MG TAB PO SCH ×2 (09:03→20:47)
[2023-04-01] MEDS: predniSONE 20 MG TAB PO SCH (09:03)
[2023-04-01] MEDS: Thiamine 100 MG TAB PO SCH (09:03)
[2023-04-01] MEDS: cefTRIAXone\\ROCEPHIN 1 GM in Sodium Chloride 0.9% 100 ML IVPB SCH (14:37)
[2023-04-01] MEDS: Nicotine 14 MG PATCH TD SCH (14:38)
[2023-04-01] MEDS: Azithromycin 500 MG in Sodium Chloride 0.9% 250 ML 250 ML IVPB SCH (17:00)
[2023-04-01] MEDS: Folic Acid 1 MG TAB PO SCH (20:46)
[2023-04-01] MEDS: Multivit, Therapeutic 1 TAB PO SCH (20:46)
[2023-04-02] MEDS: Ipratropium/Albuterol 3 ML NEB NEB SCH ×3 (01:41→10:01)
[2023-04-02] MEDS: Budesonide 0.5 MG/2 ML NEB INH SCH (07:03)
[2023-04-02 09:04] VITALS: BP 127/80; TEMP 97.8
[2023-04-02] MEDS: Enoxaparin 40 MG (0.4 mL) SYRINGE SC SCH (09:54)
[2023-04-02] MEDS: Aspirin Chewable 81 MG TAB PO SCH (09:54)
[2023-04-02] MEDS: Thiamine 100 MG TAB PO SCH (09:54)
[2023-04-02] MEDS: Famotidine 20 MG TAB PO SCH (09:54)
[2023-04-02] MEDS: predniSONE 20 MG TAB PO SCH (09:54)
[2023-04-02] MEDS: levETIRAcetam 500 MG TAB PO SCH (09:54)
[2023-04-02] MEDS: guaiFENesin/DM ER PO SCH (09:54)
== END 2023-04-02 13:05 | disposition home or self-care (01) | DRG 871 ==
LOC: SUATTDRO 11:06 → ERS 11:06 → T4-A 14:12
PROVIDERS: ADMIT Internal Medicine; ATTEND Emergency Medicine
DX: A41.9 Sepsis, unspecified organism (principal); G92.8 Other toxic encephalopathy; J18.9 Pneumonia, unspecified organism; J96.01 Acute respiratory failure with hypoxia; E87.1 Hypo-osmolality and hyponatremia; J44.1 Chronic obstructive pulmonary disease with (acute) exacerbation; Z59.00 Homelessness unspecified; G40.909 Epilepsy, unspecified, not intractable, without status epilepticus; F12.10 Cannabis abuse, uncomplicated; F17.210 Nicotine dependence, cigarettes, uncomplicated; F10.10 Alcohol abuse, uncomplicated; I10 Essential (primary) hypertension; Z11.52 Encounter for screening for COVID-19; Z79.82 Long term (current) use of aspirin; Z79.899 Other long term (current) drug therapy; Z91.199 Patient's noncompliance with other medical treatment and regimen due to unspecified reason; Z98.890 Other specified postprocedural states; Z71.6 Tobacco abuse counseling; Z71.41 Alcohol abuse counseling and surveillance of alcoholic
CPT/HCPCS: 36415; 71045; 80048; 80053; 80306; 83605; 83735; 83880; 85025; 87040; 87070; 87205; 93005; 94640; 96365; 96375; J0456; J0696; J1650; J2930; J3411; J3475; J3490; J7050; J7512; J7620; J7626

== ENCOUNTER 2023-04-28 20:11 | Inpatient (IN) | payer SELFPAY ==
[2023-04-28] MEDS ORDERED: Sodium Chloride 0.9% 100 ML ONE (20:52)
[2023-04-28] MEDS ORDERED: Cefepime 2 GM VIAL ONE (20:52)
[2023-04-28 21:11] LABS: #Monocytes 1.2 thou/uL (0.11-0.59); %Basophils 0.1 % (0.0-1.0); %Eosinophils 0.2 % (0.0-10.0); %Lymphocytes 8.3 % (21.0-51.0); %Neutrophils 81.9 % (42.0-75.0); Hematocrit 40.9 % (42.0-52.0); Hemoglobin 15.1 g/dL (14.0-18.0); Mean Corpuscular HGB CONC 36.9 g/dL (32.0-36.0); Mean Corpuscular Volume 97.4 fl (78.0-98.0); Mean Platelet Volume 7.9 fL (7.4-10.4); Platelet Count 321 10x3/uL (130-400); RBC Distribution Width 12.8 % (11.5-14.5); White Blood Cell (WBC) Count 13.4 10x3/uL (4.8-10.8)
[2023-04-28 21:28] LABS: ALT (SGPT) 19 U/L (8-55); AST (SGOT) 34 U/L (5-34); Albumin 3.8 g/dL (3.4-4.8); Alkaline Phosphatase 125 U/L (40-110); Anion Gap 14 mmol/L (10-20); BUN (Urea Nitrogen) 11 mg/dL (8.4-25.7); Bilirubin, Total 0.4 mg/dL (0.2-1.2); Calc. Creatinine Clearance 0 mL/min (70-130); Calcium 9.4 mg/dL (7.8-10.44); Carbon Dioxide 24 mmol/L (23-31); Chloride 87 mmol/L (98-107); Estimated GFR 109; Globulin 3.2 g/dL (2.4-3.5); Glucose 80 mg/dL (80-115); Potassium 4.1 mmol/L (3.5-5.1); Sodium 121 mmol/L (136-145)
[2023-04-28 21:30] LABS: Troponin I Less than 0.010 ng/mL (< 0.028)
[2023-04-28] MEDS ORDERED: LORazepam 2 MG/ML SYR.(CARPUJECT) ONE (23:09)
[2023-04-28] MEDS ORDERED: Ondansetron PF 4 MG/2 ML Vial IVP PRN (23:19)
[2023-04-28] MEDS ORDERED: Acetaminophen 325 MG TAB PO PRN (23:19)
[2023-04-28] MEDS ORDERED: Ipratropium/Albuterol 3 ML NEB EZPAP PRN (23:21)
[2023-04-28] MEDS ORDERED: Lorazepam 2 MG/ML VIAL IM PRN (23:24)
[2023-04-28] MEDS ORDERED: Lorazepam 1 MG TAB PO PRN (23:24)
[2023-04-28] MEDS ORDERED: Electrolyte Replacement Protocol 1 EACH FS SCH (23:30)
[2023-04-29 00:13] LABS: Alcohol Less than 10.0 mg/dL (Less than 10); Anion Gap 14 mmol/L (10-20); BUN (Urea Nitrogen) 9 mg/dL (8.4-25.7); Calc. Creatinine Clearance 0 mL/min (70-130); Calcium 8.8 mg/dL (7.8-10.44); Carbon Dioxide 22 mmol/L (23-31); Chloride 94 mmol/L (98-107); Estimated GFR 114; Glucose 97 mg/dL (80-115); Magnesium 1.7 mg/dL (1.6-2.6); Potassium 3.9 mmol/L (3.5-5.1); Sodium 126 mmol/L (136-145)
[2023-04-29 00:14] LABS: Acetaminophen Less than 10 mcg/mL (10.0-30.0); Alcohol Less than 10.0 mg/dL (Less than 10); Salicylate Less than 8.0 mg/dL (15.0-30.0)
[2023-04-29] MEDS: Vancomycin (BATCH) 1.25 GM in Premix 1 BAG IVPB SCH (01:50)
[2023-04-29] MEDS ORDERED: Ipratropium/Albuterol 3 ML NEB ONE ×2 (02:22→07:25)
[2023-04-29] MEDS ORDERED: Magnesium 2 GM/50 ML BAG (IN WATER) ONE (02:23)
[2023-04-29] MEDS ORDERED: Thiamine HCl 200 MG/2 ML VIAL ONE (02:23)
[2023-04-29] MEDS ORDERED: levETIRAcetam 500 MG TAB ONE (02:23)
[2023-04-29] MEDS: levETIRAcetam 500 MG TAB PO SCH ×2 (02:41→09:54)
[2023-04-29] MEDS: Ipratropium/Albuterol 3 ML NEB IPPB SCH (02:41)
[2023-04-29] MEDS: Thiamine HCl 200 MG/2 ML VIAL SLOW IVP SCH (02:41)
[2023-04-29] MEDS: Magnesium 2 GM/50 ML(in water) 2 GM in Premix 1 BAG IVPB SCH (02:42)
[2023-04-29 03:08] VITALS: BMI 19.2
[2023-04-29 04:59] LABS: #Basophils 0.1 thou/uL (0.0-0.2); #Eosinphils 0.1 thou/uL (0.0-0.7); #Monocytes 1.1 thou/uL (0.11-0.59); #Neutrophils 5.9 thou/uL (1.40-6.50); %Basophils 0.6 % (0.0-1.0); %Eosinophils 0.6 % (0.0-10.0); %Lymphocytes 16.2 % (21.0-51.0); %Monocytes 12.4 % (0.0-10.0); %Neutrophils 69.7 % (42.0-75.0); Hematocrit 43.2 % (42.0-52.0); Hemoglobin 15.5 g/dL (14.0-18.0); Mean Corpuscular HGB CONC 35.9 g/dL (32.0-36.0); Mean Corpuscular Hemoglobin 35.5 pg (27.0-31.0); Mean Corpuscular Volume 98.9 fl (78.0-98.0); Mean Platelet Volume 8.1 fL (7.4-10.4); Platelet Count 316 10x3/uL (130-400); RBC Distribution Width 12.9 % (11.5-14.5); Red Blood Cell (RBC) Count 4.37 mill/uL (4.70-6.10); White Blood Cell (WBC) Count 8.5 10x3/uL (4.8-10.8)
[2023-04-29 05:28] LABS: Phosphorus 3.6 mg/dL (2.3-4.7)
[2023-04-29 05:29] LABS: Anion Gap 12 mmol/L (10-20); BUN (Urea Nitrogen) 5 mg/dL (8.4-25.7); Calc. Creatinine Clearance 117 mL/min (70-130); Calcium 9.1 mg/dL (7.8-10.44); Carbon Dioxide 24 mmol/L (23-31); Chloride 95 mmol/L (98-107); Estimated GFR 112; Glucose 92 mg/dL (80-115); Magnesium 2.3 mg/dL (1.6-2.6); Potassium 3.8 mmol/L (3.5-5.1); Sodium 127 mmol/L (136-145)
[2023-04-29] MEDS: Vancomycin 1 GM in Premix 1 BAG IVPB SCH (06:40)
[2023-04-29] MEDS: Sodium Chloride 0.9% 1,000 ML IV SCH (09:54)
[2023-04-29] MEDS: Cefepime 2 GM in Sodium Chloride 0.9% 100 ML IVPB SCH (09:54)
[2023-04-29] MEDS: Folic Acid 1 MG TAB PO SCH (09:54)
[2023-04-29] MEDS: Multivit, Therapeutic 1 TAB PO SCH (09:54)
[2023-04-29 12:12] LABS: Amphetamine Not Detected (NotDetected); Barbiturates Screen Not Detected (NotDetected); Benzodiazepine Screen Detected (NotDetected); Cocaine Metabolite Screen Not Detected (NotDetected); Methadone Not Detected (NotDetected); Methamphetamine Not Detected (NotDetected); Opiate Screen Not Detected (NotDetected); Oxycodone Screen Not Detected (NotDetected); Phencyclidine (PCP) Not Detected (NotDetected); THC/Cannabinoid Screen Detected (NotDetected); Tricyclic Screen Not Detected (NotDetected)
[2023-04-29 21:47] LABS: Vancomycin, Trough 8.7 ug/mL
[2023-04-29] MEDS ORDERED: Lorazepam 1 MG TAB PO PRN (23:24)
[2023-04-30 05:15] LABS: #Basophils 0.1 thou/uL (0.0-0.2); #Monocytes 1.1 thou/uL (0.11-0.59); #Neutrophils 5.6 thou/uL (1.40-6.50); %Basophils 0.6 % (0.0-1.0); %Eosinophils 0.5 % (0.0-10.0); %Lymphocytes 16.4 % (21.0-51.0); %Neutrophils 69.1 % (42.0-75.0); Hematocrit 36.4 % (42.0-52.0); Hemoglobin 12.7 g/dL (14.0-18.0); Mean Corpuscular HGB CONC 34.9 g/dL (32.0-36.0); Mean Corpuscular Hemoglobin 35.5 pg (27.0-31.0); Mean Corpuscular Volume 101.7 fl (78.0-98.0); Mean Platelet Volume 8.1 fL (7.4-10.4); Platelet Count 299 10x3/uL (130-400); RBC Distribution Width 13.5 % (11.5-14.5); Red Blood Cell (RBC) Count 3.58 mill/uL (4.70-6.10); White Blood Cell (WBC) Count 8.1 10x3/uL (4.8-10.8)
[2023-04-30 05:37] LABS: Anion Gap 12 mmol/L (10-20); BUN (Urea Nitrogen) 11 mg/dL (8.4-25.7); Calc. Creatinine Clearance 109 mL/min (70-130); Calcium 8.2 mg/dL (7.8-10.44); Carbon Dioxide 26 mmol/L (23-31); Chloride 98 mmol/L (98-107); Estimated GFR 109; Glucose 114 mg/dL (80-115); Magnesium 1.7 mg/dL (1.6-2.6); Potassium 3.6 mmol/L (3.5-5.1); Sodium 132 mmol/L (136-145)
[2023-04-30] MEDS ORDERED: Ipratropium/Albuterol 3 ML NEB NEB PRN (07:59)
[2023-04-30] MEDS: Magnesium 2 GM/50 ML(in water) 2 GM in Premix 1 BAG IVPB SCH (09:14)
[2023-04-30] MEDS: Aspirin Chewable 81 MG TAB PO SCH (09:14)
[2023-04-30 13:53] LABS: Vancomycin, Trough 13.4 ug/mL
[2023-04-30] MEDS ORDERED: Lorazepam 1 MG TAB PO PRN (23:24)
[2023-05-01 04:44] LABS: #Basophils 0.1 thou/uL (0.0-0.2); #Eosinphils 0.1 thou/uL (0.0-0.7); #Neutrophils 4.4 thou/uL (1.40-6.50); %Basophils 0.8 % (0.0-1.0); %Lymphocytes 21.6 % (21.0-51.0); %Monocytes 13.9 % (0.0-10.0); %Neutrophils 61.3 % (42.0-75.0); Hematocrit 40.3 % (42.0-52.0); Mean Corpuscular HGB CONC 34.7 g/dL (32.0-36.0); Mean Corpuscular Hemoglobin 34.8 pg (27.0-31.0); Mean Corpuscular Volume 100.2 fl (78.0-98.0); Mean Platelet Volume 8.2 fL (7.4-10.4); Platelet Count 327 10x3/uL (130-400); RBC Distribution Width 13.2 % (11.5-14.5); Red Blood Cell (RBC) Count 4.02 mill/uL (4.70-6.10); White Blood Cell (WBC) Count 7.1 10x3/uL (4.8-10.8)
[2023-05-01 04:58] LABS: Anion Gap 10 mmol/L (10-20); BUN (Urea Nitrogen) 8 mg/dL (8.4-25.7); Calc. Creatinine Clearance 117 mL/min (70-130); Carbon Dioxide 28 mmol/L (23-31); Chloride 97 mmol/L (98-107); Estimated GFR 112; Glucose 87 mg/dL (80-115); Magnesium 1.9 mg/dL (1.6-2.6); Potassium 3.8 mmol/L (3.5-5.1); Sodium 131 mmol/L (136-145)
[2023-05-01] MEDS: Magnesium 2 GM/50 ML(in water) 2 GM in Premix 1 BAG IVPB SCH (08:38)
[2023-05-01] MEDS: Enoxaparin 40 MG (0.4 mL) SYRINGE SC SCH (08:40)
[2023-05-01] MEDS: Thiamine 100 MG TAB PO SCH (08:40)
[2023-05-01] MEDS: Metoprolol Tartrate 5 MG (5 mL) VIAL ONE (13:55)
[2023-05-01] MEDS: Metoprolol Tartrate 5 MG (5 mL) VIAL IVP SCH (14:57)
[2023-05-01] MEDS: Metoprolol Tartrate 25 MG TAB PO SCH ×2 (15:55→21:29)
[2023-05-01] MEDS ORDERED: Enoxaparin 60 MG (0.6 mL) SYRINGE SC SCH (21:00)
[2023-05-01] MEDS: Apixaban 5 MG TAB PO SCH (21:28)
[2023-05-01 21:48] LABS: Vancomycin, Trough 13.1 ug/mL
[2023-05-01] MEDS ORDERED: Lorazepam 0.5 MG TAB PO PRN (23:24)
[2023-05-02 04:54] LABS: #Basophils 0.1 thou/uL (0.0-0.2); #Eosinphils 0.2 thou/uL (0.0-0.7); #Neutrophils 4.5 thou/uL (1.40-6.50); %Basophils 0.8 % (0.0-1.0); %Eosinophils 3.1 % (0.0-10.0); %Lymphocytes 20.7 % (21.0-51.0); %Monocytes 13.6 % (0.0-10.0); %Neutrophils 61.3 % (42.0-75.0); Hematocrit 40.9 % (42.0-52.0); Hemoglobin 14.3 g/dL (14.0-18.0); Mean Corpuscular Hemoglobin 35.8 pg (27.0-31.0); Mean Corpuscular Volume 102.3 fl (78.0-98.0); Mean Platelet Volume 8.3 fL (7.4-10.4); Platelet Count 351 10x3/uL (130-400); White Blood Cell (WBC) Count 7.3 10x3/uL (4.8-10.8)
[2023-05-02 05:41] LABS: Anion Gap 12 mmol/L (10-20); BUN (Urea Nitrogen) 13 mg/dL (8.4-25.7); Calc. Creatinine Clearance 100 mL/min (70-130); Calcium 9.1 mg/dL (7.8-10.44); Carbon Dioxide 25 mmol/L (23-31); Chloride 96 mmol/L (98-107); Estimated GFR 106; Glucose 88 mg/dL (80-115); Potassium 4.1 mmol/L (3.5-5.1); Sodium 129 mmol/L (136-145)
[2023-05-03 05:36] LABS: #Basophils 0.1 thou/uL (0.0-0.2); #Eosinphils 0.2 thou/uL (0.0-0.7); #Monocytes 0.9 thou/uL (0.11-0.59); #Neutrophils 3.8 thou/uL (1.40-6.50); %Basophils 1.1 % (0.0-1.0); %Eosinophils 3.4 % (0.0-10.0); %Lymphocytes 22.2 % (21.0-51.0); %Monocytes 13.6 % (0.0-10.0); %Neutrophils 58.9 % (42.0-75.0); Hematocrit 42.9 % (42.0-52.0); Hemoglobin 15.1 g/dL (14.0-18.0); Mean Corpuscular HGB CONC 35.2 g/dL (32.0-36.0); Mean Corpuscular Hemoglobin 35.8 pg (27.0-31.0); Mean Corpuscular Volume 101.7 fl (78.0-98.0); Mean Platelet Volume 8.1 fL (7.4-10.4); Platelet Count 368 10x3/uL (130-400); RBC Distribution Width 13.1 % (11.5-14.5); Red Blood Cell (RBC) Count 4.22 mill/uL (4.70-6.10); White Blood Cell (WBC) Count 6.4 10x3/uL (4.8-10.8)
[2023-05-03 05:57] LABS: Anion Gap 12 mmol/L (10-20); BUN (Urea Nitrogen) 12 mg/dL (8.4-25.7); Calc. Creatinine Clearance 103 mL/min (70-130); Calcium 9.3 mg/dL (7.8-10.44); Carbon Dioxide 31 mmol/L (23-31); Chloride 94 mmol/L (98-107); Estimated GFR 107; Glucose 99 mg/dL (80-115); Sodium 133 mmol/L (136-145)
[2023-05-03] MEDS: Amoxicillin/Potassium Clav 875 MG TAB PO SCH (12:18)
[2023-05-03] MEDS: Doxycycline 100 MG CAP PO SCH (12:18)
[2023-05-03 15:45] VITALS: BP 121/74; TEMP 98.1
[2023-05-03] MEDS ORDERED: Sulfameth/Trimethoprim DS 800-160mg TAB PO SCH (21:00)
[2023-05-03] MEDS ORDERED: Amoxicillin/Potassium Clav 875 MG TAB PO SCH (21:00)
[2023-05-03] MEDS ORDERED: Doxycycline 100 MG CAP PO SCH (21:00)
== END 2023-05-03 18:20 | disposition home or self-care (01) | DRG 871 ==
LOC: ERS 20:11 → ERHOLD 23:22 → 2NO 04-29 08:21
PROVIDERS: ADMIT Internal Medicine; ATTEND Family Medicine
DX: A41.9 Sepsis, unspecified organism (principal); I50.43 Acute on chronic combined systolic (congestive) and diastolic (congestive) heart failure; J18.9 Pneumonia, unspecified organism; I96 Gangrene, not elsewhere classified; E87.1 Hypo-osmolality and hyponatremia; M84.471A Pathological fracture, right ankle, initial encounter for fracture; E87.20 Acidosis, unspecified; Z59.00 Homelessness unspecified; N39.0 Urinary tract infection, site not specified; Z68.41 Body mass index [BMI] 40.0-44.9, adult; N32.1 Vesicointestinal fistula; J44.1 Chronic obstructive pulmonary disease with (acute) exacerbation; J44.0 Chronic obstructive pulmonary disease with (acute) lower respiratory infection; G40.909 Epilepsy, unspecified, not intractable, without status epilepticus; F10.20 Alcohol dependence, uncomplicated; F17.210 Nicotine dependence, cigarettes, uncomplicated; I34.0 Nonrheumatic mitral (valve) insufficiency; I48.0 Paroxysmal atrial fibrillation; E86.1 Hypovolemia; N50.89 Other specified disorders of the male genital organs; E66.01 Morbid (severe) obesity due to excess calories; E78.5 Hyperlipidemia, unspecified; I11.0 Hypertensive heart disease with heart failure; E87.6 Hypokalemia; Z79.82 Long term (current) use of aspirin; Z79.899 Other long term (current) drug therapy
CPT/HCPCS: 36415; 70450; 80048; 80053; 80202; 80306; 80307; 83605; 83735; 83930; 83935; 84100; 84145; 84300; 84484; 85025; 86140; 87040; 87070; 87077; 87149; 87186; 87205; 93005; 93010; 93306; 94640; 96361; 96365; 96367; 96375; 97139; J0692; J1650; J2060; J3370; J3370-JW; J3411; J3475; J3490; J7050; J7620

== ENCOUNTER 2024-01-11 18:33 | Emergency (ER) | payer SELFPAY ==
[2024-01-11 19:19] LABS: #Basophils 0.04 10x3/uL (0.0-0.2); %Basophils 0.5 % (0.0-1.0); %Eosinophils 3.3 % (0.0-10.0); %Lymphocytes 25.9 % (21.0-51.0); %Monocytes 8.6 % (0.0-10.0); %Neutrophils 61.3 % (42.0-75.0); Hematocrit 37.7 % (42.0-52.0); Hemoglobin 13.4 g/dL (14.0-18.0); Mean Corpuscular HGB CONC 35.5 g/dL (32.0-36.0); Mean Corpuscular Hemoglobin 35.4 pg (27.0-31.0); Mean Corpuscular Volume 99.5 fL (78.0-98.0); Mean Platelet Volume 9.2 fL (7.4-10.4); Platelet Count 236 10x3/uL (130-400); RBC Distribution Width 12.2 % (11.5-14.5); Red Blood Cell (RBC) Count 3.79 mill/uL (4.70-6.10)
[2024-01-11 19:38] LABS: ALT (SGPT) 16 U/L (8-55); AST (SGOT) 20 U/L (5-34); Albumin 3.4 g/dL (3.4-4.8); Alkaline Phosphatase 88 U/L (40-110); Anion Gap 17 mmol/L (10-20); BUN (Urea Nitrogen) 7 mg/dL (8.4-25.7); Bilirubin, Total 0.4 mg/dL (0.2-1.2); Calc. Creatinine Clearance 0 mL/min (70-130); Calcium 8.7 mg/dL (7.8-10.44); Carbon Dioxide 22 mmol/L (23-31); Chloride 103 mmol/L (98-107); Estimated GFR 107; Globulin 2.9 g/dL (2.4-3.5); Glucose 95 mg/dL (80-115); Potassium 3.5 mmol/L (3.5-5.1); Protein, Total 6.3 g/dL (5.8-8.1); Sodium 138 mmol/L (136-145)
[2024-01-11 19:39] LABS: Acetaminophen Less than 10 mcg/mL (Less than 10); Salicylate Less than 8.0 mg/dL (Less than 8.0)
[2024-01-11 19:42] LABS: Troponin I Less than 0.010 ng/mL (< 0.028)
[2024-01-11 20:30] LABS: Bacteria/HPF None Seen HPF (None Seen); Bilirubin Negative (Negative); Blood, Urine Negative (Negative); CAUTI Indications for Culture Alt mental st,lethar; Clarity Clear (Clear); Glucose, Urine (Dipstick) Normal (Negative); Ketone, Urine Negative (Negative); Leukocyte Negative Leu/uL (Negative); Nitrite Negative (Negative); Protein, Urine (Dipstick) Negative (Neg-Trace); RBC/HPF None Seen HPF (0-3); Squamous Epithelial None Seen HPF (0-3); Urobilinogen Normal mg/dL (Less than 2); WBC/HPF 0-3 HPF (0-3)
[2024-01-11 20:32] LABS: Urine Culture Reflex No No
[2024-01-11 20:38] LABS: Amphetamine Not Detected (NotDetected); Barbiturates Screen Not Detected (NotDetected); Benzodiazepine Screen Detected (NotDetected); Cocaine Metabolite Screen Not Detected (NotDetected); Methadone Not Detected (NotDetected); Methamphetamine Not Detected (NotDetected); Opiate Screen Not Detected (NotDetected); Oxycodone Screen Not Detected (NotDetected); Phencyclidine (PCP) Not Detected (NotDetected); THC/Cannabinoid Screen Detected (NotDetected); Tricyclic Screen Not Detected (NotDetected)
[2024-01-11] MEDS ORDERED: Mag-Al 1200 mg/1200 mg/30 ML UDCUP ONE (22:42)
[2024-01-11] MEDS ORDERED: Lidocaine Viscous Sol 2% 15 ml UD Cup ONE (22:43)
[2024-01-11] MEDS ORDERED: Famotidine/PF 20 mg/2ml Vial ONE (22:43)
== END 2024-01-11 23:03 | disposition home or self-care (01) ==
LOC: ERS 18:33
DX: F10.129 Alcohol abuse with intoxication, unspecified (principal); I10 Essential (primary) hypertension; F17.210 Nicotine dependence, cigarettes, uncomplicated; F17.290 Nicotine dependence, other tobacco product, uncomplicated; Z55.0 Illiteracy and low-level literacy
CPT/HCPCS: 36415; 70450; 72125; 80053; 80306; 80307; 81001; 84443; 84484; 85025; 87040; 87086; 96374; J3490

== ENCOUNTER 2025-03-02 14:35 | Emergency (ER) | payer OTHER, SELFPAY ==
[2025-03-02] MEDS ORDERED: levETIRAcetam 500 MG (5 mL) VIAL ONE (15:54)
[2025-03-02 15:57] LABS: #Basophils 0.07 10x3/uL (0.0-0.2); #Eosinophils 0.10 10x3/uL (0.0-0.7); #Monocytes 0.91 10x3/uL (0.11-0.59); #Neutrophils 7.17 10x3/uL (1.40-6.50); %Basophils 0.8 % (0.0-1.0); %Eosinophils 1.1 % (0.0-10.0); %Lymphocytes 11.0 % (21.0-51.0); %Monocytes 9.8 % (0.0-10.0); %Neutrophils 77.1 % (42.0-75.0); Hematocrit 42.3 % (42.0-52.0); Hemoglobin 15.0 g/dL (14.0-18.0); Mean Corpuscular Hemoglobin 35.3 pg (27.0-31.0); Mean Corpuscular Volume 99.5 fL (78.0-98.0); Platelet Count 291 10x3/uL (130-400); Red Blood Cell (RBC) Count 4.25 mill/uL (4.70-6.10); White Blood Cell (WBC) Count 9.29 10x3/uL (4.8-10.8)
[2025-03-02 16:12] LABS: ALT (SGPT) 9 U/L (Less than 45); AST (SGOT) 25 U/L (11-34); Albumin 3.6 g/dL (3.1-4.5); Alkaline Phosphatase 94 U/L (40-110); Anion Gap 10 mmol/L (10-20); BUN (Urea Nitrogen) 15 mg/dL (8.4-25.7); Bilirubin, Total 0.3 mg/dL (0.3-1.2); CK (CPK) 89 U/L (30-200); Calc. Creatinine Clearance 0 mL/min (70-130); Calcium 9.2 mg/dL (7.8-10.44); Carbon Dioxide 29 mmol/L (23-31); Chloride 101 mmol/L (98-107); Globulin 2.9 g/dL (2.4-3.5); Glucose 92 mg/dL (80-115); Lipase 21 U/L (8-78); Potassium 4.3 mmol/L (3.5-5.1); Sodium 136 mmol/L (136-145)
[2025-03-02 16:14] LABS: Acetaminophen Less than 10 mcg/mL (Less than 10); Salicylate Less than 8.0 mg/dL (Less than 8.0)
[2025-03-02 17:43] LABS: Cocaine Metabolite Screen Negative (Negative); THC/Cannabinoid Screen PRELIM POSITIVE (Negative); Tricyclic Screen Negative (Negative)
== END 2025-03-02 18:18 ==
LOC: ERS 14:35 → EEVIPCON 14:35 → ERS 18:18
DX: G40.909 Epilepsy, unspecified, not intractable, without status epilepticus (principal); S09.90XA Unspecified injury of head, initial encounter; I10 Essential (primary) hypertension; F17.210 Nicotine dependence, cigarettes, uncomplicated; W18.2XXA Fall in (into) shower or empty bathtub, initial encounter
CPT/HCPCS: 70450; 80053; 80306; 80307; 82550; 83605; 83690; 84146; 85025; 93005; 96374; 96375; J1953; J3411